=== PATIENT | female | born 1965 | race Hispanic/Latino ===

== ENCOUNTER 2021-01-26 12:32 | Emergency (ER) | payer BC, OTHER ==
[2021-01-26] MEDS ORDERED: IBUPROFEN 200 MG TAB PO ONE (13:48)
[2021-01-26] MEDS ORDERED: IBUPROFEN 400 MG TAB ONE (13:48)
[2021-01-26 16:51] LABS: Absolute Lymphocytes (CBC) 2.1 K/uL (0.7-4.9); Basophils % 1.1 % (0-1.3); Hematocrit 42.2 % (36.0-45.0); Lymphocytes % 36.4 % (15.3-44.8); MPV 8.6 fL (7.6-11.3); RBC Red Blood Cell Count 4.88 M/uL (3.86-4.86)
--- NOTE | 2021-01-26 17:00 | RAD REPORT ---
EXAM DESCRIPTION: CT - Head Brain Wo Cont - 01/26/2021 4:21 pm CLINICAL HISTORY: Vision loss COMPARISON: None. TECHNIQUE: Computed axial tomography of the head was obtained. IV contrast was not requested. All CT scans are performed using dose optimization technique as appropriate and may include automated exposure control or mA/KV adjustment according to patient size. FINDINGS: An intracranial bleed is not seen . The ventricles are normal in caliber. No extra-axial fluid collection is noted. Fluid within the sinuses/ mastoids is not seen. IMPRESSION: No acute intracranial abnormality is seen. If patient's symptoms persist MRI of the bra in would be recommended.
[2021-01-26] MEDS ORDERED: METHYLPREDNISOLONE 125 MG INJ ONE (17:03)
[2021-01-26] MEDS ORDERED: MEPERIDINE HCL 25 MG/ML SYR ONE ×2 (17:03→18:56)
[2021-01-26 17:09] LABS: Protime INR 0.96
[2021-01-26 17:10] LABS: ALT/SGPT 36 U/L (12-78); AST/SGOT 16 U/L (15-37); Alkaline Phosphatase 105 U/L (45-117); BUN Blood Urea Nitrogen 16 mg/dL (7-18); Bicarbonate 29 mmol/L (21-32); Bilirubin Direct < 0.1 mg/dL (0-0.2); Bilirubin Total 0.3 mg/dL (0.2-1.0); Glucose Level 104 mg/dL (74-106); Protein, Total 7.2 g/dL (6.4-8.2); Sodium Level 146 mmol/L (136-145)
[2021-01-26 17:36] LABS: C-Reactive Protein < 2.90 mg/L (<3.00)
--- NOTE | 2021-01-26 19:51 | RAD REPORT ---
EXAM DESCRIPTION: MRI - Brain W/Wo Cont - 01/26/2021 7:43 pm CLINICAL HISTORY: Blurred vision COMPARISON: head CT January 26, 2021 TECHNIQUE: Axial, sagittal, and coronal magnetic images of the brain were obtained. 14 cc MultiHance administered intravenously FINDINGS: No significant abnormal signal within the brain noted. The ventricles are normal in caliber. Diffusion-weighted/ ADC mapping sequences do not demonstrate evidence of an acute infarction. No abnormal enhancement within the brain is seen. An extra-axial fluid collection is not noted. Fluid within the sinuses/mastoids is not seen IMPRESSION: No acute intracranial abnormality displayed
--- NOTE | 2021-01-26 19:54 | RAD REPORT ---
EXAM DESCRIPTION: MRI - MRA Neck W/Wo Cont - 01/26/2021 7:42 pm CLINICAL HISTORY: Blurred vision COMPARISON: None. TECHNIQUE: Magnetic resonance angiogram of the neck was performed. 14 cc MultiHance was administered intravenously. 3D MIPS reconstruction performed FINDINGS: Mild plaque within common carotid, internal carotid and external carotid arteries bilatera lly. . An aneurysm is not seen. The the right vertebral artery is dominant. No abnormality noted. Left vertebral artery is hypoplastic. IMPRESSION: Mild plaque within the carotid arteries NASCET criteria used. Mild 0-49% stenosis Moderate 50-69% stenosis Severe 70-99% stenosis
--- NOTE | 2021-01-26 20:02 | EDPHYS ---
Physician Documentation [facility] Name: Doris Ventura Age: 55 yrs Sex: Female : 1965 Arrival Date: 01/26/2021 Time: 12:39 Bed 19 Private MD: ED Physician Leonel Olvia HPI: 01/26 16:05 This 55 yrs old Female presents to ER via Ambulatory with complaints of rn headache, blurred vision. 16:05 The patient complains of pain to the forehead, left eye and left buddhist. The patient rn describes the headache as aching. Onset: The symptoms/episode began/occurred 4 day(s) ago. Severity of symptoms: At its worst the pain was moderate, in the emergency department the pain is unchanged. The symptoms are alleviated by nothing. the symptoms are aggravated by nothing. The patient has not experienced similar symptoms in the past. The patient has been recently seen by a physician:. Sent by Ophthalmology, for left sided headache and blurred vision, told needs imaging and w/u for giant cell arteritis. No hx of such, only migraines. Has been happening for 4 days no, no head injury, no other neuro deficit. Reports feels like central blurred vision in left eye, doesn't effect right eye. Reports gradually worsening blurred vision, has bought 2-3 new glasses in last 4 days. . 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 - Social history:: Smoking status: Patient denies any tobacco usage or history of. - Family history:: not pertinent. - Hospitalizations: : No recent hospitalization is reported. ROS: 16:20 Constitutional: Negative for fever, chills, and weight loss, Eyes: Negative for injury, rn + blurred vision left eye Neck: Negative for injury, pain, and swelling, Cardiovascular: Negative for chest pain, palpitations, and edema, Respiratory: Negative for shortness of breath, cough, wheezing, and pleuritic chest pain, Abdomen/GI: Negative for abdominal pain, nausea, vomiting, diarrhea, and constipation, Back: Negative for injury and pain, MS/Extremity: Negative for injury and deformity, Skin: Negative for injury, rash, and discoloration, Neuro: Negative for weakness, numbness, tingling, and seizure. Exam: 16:20 Constitutional: This is a well developed, well nourished patient who is awake, alert, rn and in no acute distress. Head/Face: Normocephalic, atraumatic. Eyes: Pupils equal round and reactive to light, extra-ocular motions intact. Conjunctiva and sclera are non-icteric and not injected. Cornea within normal limits. ENT: MMM, no stridor Cardiovascular: Regular rate and rhythm. No pulse deficits. Respiratory: No increased work of breathing, no retractions or nasal flaring. Skin: Warm, dry with normal turgor. Normal color with no rashes, no lesions, and no evidence of cellulitis. MS/ Extremity: Pulses equal, no cyanosis. Neuro: Awake and alert, GCS 15, oriented to person, place, time, and situation. Cranial nerves II-XII grossly intact. Motor strength 5/5 in all extremities. Sensory grossly intact. Cerebellar exam normal. Normal gait. Vital Signs: 13:12 BP 142 / 108; Pulse 69; Resp 17; Temp 98.2; Pulse Ox 99% ; Weight 61.69 kg; Pain 6/10; jl7 17:08 BP 164 / 97; Pulse 62; Resp 18; Pulse Ox 95% on R/A; Pain 0/10; em 18:32 BP 172 / 89; Pulse 63; Resp 16; Pulse Ox 99% on R/A; em 20:03 BP 151 / 71; Pulse 64; Resp 18; Pulse Ox 98% ; wh MDM: 15:50 Patient medically screened. rn 17:35 ED course: Headache improved but vision still blurry. MRI stroke protocol ordered. rn 17:44 ED course: CRP and ESR WNL, no thrombocytosis, no lab to indicate temporal arteritis. rn MRI stroke protocol ordered to rule out ophthalmic stroke or arterial occlusion leading to blurred vision.. 17:49 ED course: Pt states her ambulatory care nurse told her today that if blood tests and MRI are rn negative, to f/u again with them for further eye testing and talk about eyesight pentecostalism. Pt has rest of week off and confident she can get back in with her eye doctor tomorrow. . 20:01 Data reviewed: vital signs, nurses notes. Counseling: I had a detailed discussion with shanat the patient and/or guardian regarding: the historical points, exam findings, and any diagnostic results supporting the discharge/admit diagnosis, lab results, radiology results, the need for outpatient follow up, to return to the emergency department if symptoms worsen or persist or if there are any questions or concerns that arise at home. 01/26 16:02 Order name: CBC with Diff rn 01/26 16:02 Order name: Basic Metabolic Panel rn 01/26 16:02 Order name: ESR rn 01/26 16:02 Order name: CRP rn 01/26 16:02 Order name: LFT's rn 01/26 16:02 Order name: Protime (+inr) rn 01/26 16:02 Order name: Ptt, Activated rn 01/26 17:02 Order name: CBC with Automated Diff; Complete Time: 17:23 EDMS 01/26 17:09 Order name: Sedimentation Rate, Westergren; Complete Time: 17:23 EDMS 01/26 17:10 Order name: Protime (+INR); Complete Time: 17:23 EDMS 01/26 17:10 Order name: PTT, Activated Partial Thromb; Complete Time: 17:23 EDMS 01/26 17:37 Order name: Basic Metabolic Panel; Complete Time: 17:43 EDMS 01/26 17:37 Order name: Liver (Hepatic) Function; Complete Time: 17:43 EDMS 01/26 17:37 Order name: C-Reactive Protein; Complete Time: 17:43 EDMS 01/26 15:33 Order name: CT Head Brain wo Cont sv 01/26 16:02 Order name: IV Start; Complete Time: 16:41 rn 01/26 17:01 Order name: CT; Complete Time: 17:23 EDMS 01/26 17:35 Order name: Stroke Protocol MRI rn 01/26 19:51 Order name: MRI; Complete Time: 19:55 EDMS 01/26 19:54 Order name: MRI; Complete Time: 19:55 EDMS 01/26 20:05 Order name: MRI; Complete Time: 20:06 EDMS Administered Medications: 16:50 Drug: SOLU-Medrol (methylPrednisoLONE) 125 mg Route: IVP; Site: right antecubital; em 17:32 Follow up: Response: No adverse reaction; Marked relief of symptoms em 16:52 Drug: Demerol (meperidine) 25 mg Route: IVP; Site: right antecubital; em 17:32 Follow up: Response: No adverse reaction; Marked relief of symptoms; Pain is decreased em 18:42 Drug: Demerol (meperidine) 12.5 mg Route: IVP; Site: right antecubital; em Disposition: 01/27 07:47 Co-signature as Attending Physician, Leonel Oliva MD. rn Disposition: 01/26/21 20:01 Discharged to Home. Impression: Left Eye Vision Loss. - Condition is Stable. - Discharge Instructions: Blurred Vision, Adult. - Medication Reconciliation Form, Thank You Letter, Antibiotic Education, Prescription Opioid Use, Work release form form. - Follow up: Private Physician; When: 1 - 2 days; Reason: Recheck today's complaints, Continuance of care, Re-evaluation by your physician. Signatures: Dispatcher [employer] EDMS Arik Bo PA PA jmm Munoz, Edgar, RN RN Leonel Oliva MD MD rn Leal, Jahala, RN RN [facility] Leia Hagan RN RN Corrections: (The following items were deleted from the chart) 01/26 16:23 16:05 Sent by Ophthalmology, for left sided headache and blurred vision, told needs internal controls analyst and w/u for giant cell arteritis. No hx of such, only migraines. Has been happening for 4 days no, no head injury, no other neuro deficit. Reports feels like central blurred vision in left eye, doesn't effect right eye.. rn 20:14 20:01 01/26/2021 20:01 Discharged to Home. Impression: Left Eye Vision Loss. Condition wh is Stable. Forms are Medication Reconciliation Form, Thank You Letter, Antibiotic Education, Prescription Opioid Use. Follow up: Private Physician; When: 1 - 2 days; Reason: Recheck today's complaints, Continuance of care, Re-evaluation by your physician. shanta
--- NOTE | 2021-01-26 20:02 | ER ---
Nurse's Notes [facility] Name: Doris Ventura Age: 55 yrs Sex: Female : 1965 Arrival Date: 01/26/2021 Time: 12:39 Bed 19 Private MD: Diagnosis: Left Eye Vision Loss Presentation: 01/26 13:12 Chief complaint: Patient states: Migraine and gradual loss of vision to left eye x 4 jl7 days, sent by lab[employer] Dr. Smith with paper requesting pt be "worked up for giant cell arteritis, if negative MRI with contrast". Coronavirus screen: Client denies travel out of the [place] in the last 14 days. At this time, the client does not indicate any symptoms associated with coronavirus-19. Ebola Screen: No symptoms or risks identified at this time. Initial Sepsis Screen: Does the patient meet any 2 criteria? No. Patient's initial sepsis screen is negative. Does the patient have a suspected source of infection? No. Patient's initial sepsis screen is negative. Risk Assessment: Do you want to hurt yourself or someone else? Patient reports no desire to harm self or others. Onset of symptoms was January 22, 2021. Care prior to arrival: None. 13:12 Method Of Arrival: Ambulatory [facility] 13:12 Acuity: UMESH 3 jl7 Triage Assessment: 13:16 General: Appears in no apparent distress. uncomfortable, Behavior is cooperative, jl7 anxious. Pain: Complains of pain in left eye and left rastafarian Pain currently is 6 out of 10 on a pain scale. Neuro: Level of Consciousness is awake, alert, obeys commands, Oriented to person, place, time, situation, Greige Goods Inspector are equal bilaterally Moves all extremities. Full function Gait is steady, Speech is normal, Facial symmetry appears normal, Reports loss of vision to left eye x 4 days. Cardiovascular: Patient's skin is warm and dry. Respiratory: Airway is patent Respiratory effort is even, unlabored, Respiratory pattern is regular, symmetrical. Derm: Skin is pink, warm \\T\\ dry. 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 - Social history:: Smoking status: Patient denies any tobacco usage or history of. - Family history:: not pertinent. - Hospitalizations: : No recent hospitalization is reported. Screenin:30 Abuse screen: Denies threats or abuse. Nutritional screening: No deficits noted. em Tuberculosis screening: No symptoms or risk factors identified. Fall Risk None identified. Assessment: 15:33 Reassessment: Received VO for CT from Dr Oliva. sv 16:45 General: Appears in no apparent distress. comfortable, Behavior is calm, cooperative, em appropriate for age, Reports vision loss in left eye and pain around left eye, also reports numbness and tingling in the left arm Denies fever. Pain: Complains of pain in forehead and face and left eye Pain currently is 8 out of 10 on a pain scale. Pain began 4 days ago. Neuro: Level of Consciousness is awake, alert, obeys commands, Oriented to person, place, time, situation. Cardiovascular: Capillary refill < 3 seconds Patient's skin is warm and dry. Respiratory: Airway is patent Respiratory effort is even, unlabored, Respiratory pattern is regular, symmetrical. GI: Patient currently denies nausea. Derm: Skin is intact, is healthy with good turgor, Skin is pink, warm \\T\\ dry. Musculoskeletal: Capillary refill < 3 seconds, Range of motion: intact in all extremities. 17:13 Reassessment: Patient appears in no apparent distress at this time. Patient and/or em family updated on plan of care and expected duration. Pain level reassessed. Patient is alert, oriented x 3, equal unlabored respirations, skin warm/dry/pink. Patient states feeling better. Patient states symptoms have improved. 18:31 Reassessment: Patient appears in no apparent distress at this time. Patient and/or em family updated on plan of care and expected duration. Pain level reassessed. Patient is alert, oriented x 3, equal unlabored respirations, skin warm/dry/pink. reports vision is unchanged, pain is better, pending MRI. 18:40 Reassessment: pt reports pain is coming back and would like to have some more pain em medication before MRI is complete, Dr. Oliva notified, received VO for Demerol 12.5 IVP x 1. Vital Signs: 13:12 BP 142 / 108; Pulse 69; Resp 17; Temp 98.2; Pulse Ox 99% ; Weight 61.69 kg; Pain 6/10; jl7 17:08 BP 164 / 97; Pulse 62; Resp 18; Pulse Ox 95% on R/A; Pain 0/10; em 18:32 BP 172 / 89; Pulse 63; Resp 16; Pulse Ox 99% on R/A; em 20:03 BP 151 / 71; Pulse 64; Resp 18; Pulse Ox 98% ; ED Course: 12:39 Patient arrived in ED. mr 13:12 Hamzah Mason, RN is Primary Nurse. jl7 13:15 Triage completed. jl7 13:16 Arm band placed on right wrist. jl7 15:45 Leonel Oliva MD is Attending Physician. rn 15:50 Segundo Espinal, PAOLA is Primary Nurse. em 16:41 Ptt, Activated Sent. mh5 16:41 Protime (+inr) Sent. mh5 16:41 LFT's Sent. mh5 16:41 CRP Sent. mh5 16:41 ESR Sent. mh5 16:41 Basic Metabolic Panel Sent. mh5 16:41 CBC with Diff Sent. mh5 16:42 Patient has correct armband on for positive identification. Placed in gown. Bed in low mh5 position. Call light in reach. Side rails up X 1. Warm blanket given. Pulse ox on. NIBP on. 16:42 Initial lab(s) drawn, by wi, sent to lab. Inserted saline lock: 22 gauge in right mh5 antecubital area, using aseptic technique. Blood collected. 18:54 Arik Bo PA is PHCP. [facility] 19:54 Primary Nurse role handed off by Segundo Espinal, PAOLA mw2 19:56 Leia Hagan, PAOLA is Primary Nurse. wh 20:13 No apparent distress. wh 20:13 No provider procedures requiring assistance completed. IV discontinued. wh Administered Medications: 16:50 Drug: SOLU-Medrol (methylPrednisoLONE) 125 mg Route: IVP; Site: right antecubital; em 17:32 Follow up: Response: No adverse reaction; Marked relief of symptoms em 16:52 Drug: Demerol (meperidine) 25 mg Route: IVP; Site: right antecubital; em 17:32 Follow up: Response: No adverse reaction; Marked relief of symptoms; Pain is decreased em 18:42 Drug: Demerol (meperidine) 12.5 mg Route: IVP; Site: right antecubital; em Outcome: 20:01 Discharge ordered by MD. womack 20:13 Discharged to home ambulatory. 20:13 Condition: good 20:13 Discharge instructions given to patient. 20:14 Patient left the ED. Signatures: Noelle Antunez, RN Arik Tripathi PA PA jmm Rivera, Mary mr Teddy, Segundo, RN Leonel Sinclair MD MD rn Martinez, Maria [facility] Hamzah Mason RN RN [facility] Leia Hagan RN RN Elda Montenegro 2
--- NOTE | 2021-01-26 20:03 | RAD REPORT ---
EXAM DESCRIPTION: MRI - MRA Head Wo Cont - 01/26/2021 7:43 pm CLINICAL HISTORY: Blurred vision COMPARISON: None. TECHNIQUE: Magnetic resonance angiogram was performed. 3D MIPS reconstruction performed FINDINGS: The basilar tip is bulbous measuring 4 millimeters. Narrowing involves the proximal aspects of the right and left A2 segments anterior cerebral artery origin right posterior cerebral artery. Middle cerebral and and posterior cerebral arteries unremarkable. Distal internal carotid arteries are unremarkable. An aneurysm is not displayed. IMPRESSION: Narrowing of the proximal aspects of the right and left A2 segment anterior cerebral art dario may be chronic Bulbous basilar tip
[2021-01-26 20:37] VITALS: TEMP 98.2
[2021-01-26 20:41] VITALS: BP 151/71; O2SAT 98
== END 2021-01-26 20:14 | disposition home or self-care (01) ==
LOC: ER 12:32
DX: H54.62 Unqualified visual loss, left eye, normal vision right eye (principal)
CPT/HCPCS: 85025; 80048; 36415; 85610; 80076; 85730; 85652; 86140; 70450; 70553; 70544; 70549; A9577; J2175 ×2; J2930; 96374; 96375; 99284

== ENCOUNTER 2024-05-09 12:29 | Emergency (ER) | payer SELFPAY ==
--- OUTSIDE RECORDS SUMMARY | 2024-05-09 12:34 | XMS REPORT | Clinical Summary ---
Author Name Unknown Organization [facility] Address [address] [place] [address] Care Team Providers Care Design Center Consultant Name Role Phone Loree Witt DO Unavailable Lisha Ahn MD Unavailable Breann Pat MD Primary Care Provider [phone] Ligia Cosme MD Unavailable [phone] Alina Lemons MD Unavailable Christine Pierson MD Unavailable [phone] Quincy Chen MD Unavailable Skinny Menchaca MD Unavailable Allergies No known active allergies Medications Medication Sig Dispensed Refills Start Date End Date Status lisinopril (PRINIVIL,ZESTRI L) 20 mg tablet TAKE 1 TABLET BY MOUTH EVERY DAY FOLLOW UP WITH PRIMARY CARE 3 Active amLODIPine (NORVASC) 5 mg tablet Take 1 tablet (5 mg) by mouth. Active DULoxetine (CYMBALTA) 20 mg capsuleIndicatio ns:Infiltrating ductal carcinoma of upper inner quadrant of right female breast,Major depressive disorder, single episode, moderate,General ized anxiety disorder Take 1 capsule (20 mg) by mouth twice daily. 60 capsule 1 3 Active Additional Information Patient taking differently:20 mg oralEvery 12 hours, Reason: Other, Reported on 06/29/2023 OLANZapine (ZyPREXA) 5 mg tabletIndication s:Infiltrating ductal carcinoma of upper inner quadrant of right female breast,Major depressive disorder, single episode, moderate,General ized anxiety disorder TAKE 1/2 TABLET (2.5 MG) BY MOUTH 2 (TWO) TIMES A DAY NEEDED FOR ANXIETY. 30 tablet 1 3 Active letrozole (FEMARA) 2.5 mg tabletIndication s:Infiltrating ductal carcinoma of upper inner quadrant of right female breast Take 1 tablet (2.5 mg) by mouth daily. 90 tablet 3 3 Active melatonin 3 mg tablet Take 5 mg by mouth at bedtime. Active mupirocin (BACTROBAN) 2% ointmentIndicati ons:Acquired absence of bilateral breasts and nipples Apply topically to affected area(s) twice daily. 22 g 4 Active alendronate (Fosamax) 70 mg tabletIndication s:Osteopenia Take 1 tablet (70 mg) by mouth every 7 days. 12 tablet 3 4 Active Additional Information Patient not taking.Reported on 11/28/2023 traMADol (Ultram) 50 mg tabletIndication s:Infiltrating ductal carcinoma of upper inner quadrant of right female breast Take 1 tablet (50 mg) by mouth every 6 (six) hours as needed for severe pain (not controlled by acetaminophen and ibuprofen). 30 tablet 3 023 Discontinued(St op Taking at Discharge) ibuprofen (ADVIL,MOTRIN) 800 mg tabletIndication s:Infiltrating ductal carcinoma of upper inner quadrant of right female breast Take 1 tablet (800 mg) by mouth every 8 (eight) hours. Take with food 15 tablet 3 023 Discontinued(St op Taking at Discharge) acetaminophen (TylenoL) 325 mg tabletIndication s:Infiltrating ductal carcinoma of upper inner quadrant of right female breast Take 2 tablets (650 mg) by mouth every 6 (six) hours. 40 tablet 3 023 Discontinued(St op Taking at Discharge) CALCIUM ORAL Take 300 mg by mouth daily. 023 Discontinued(Th erapy completed) multivitamin capsule Take 1 capsule by mouth daily. For women over 50 Discontinued( erapy completed) DULoxetine (CYMBALTA) 20 mg capsule Take 1 capsule (20 mg) by mouth. Discontinued(Du plicate order) aspirin-acetamin ophen-caffeine (EXCEDRIN MIGRAINE) 250-250-65 mg per tablet Take 2 tablets by mouth daily as needed for headaches. Last dose 06/23/23 024 Discontinued( erapy completed) acetaminophen (TYLENOL) 500 mg tabletIndication s:Personal history of breast cancer Take 1 tablet (500 mg) by mouth every 6 (six) hours. 60 tablet 3 023 Discontinued traMADol (ULTRAM) 50 mg tabletIndication s:Personal history of breast cancer Take 1 tablet (50 mg) by mouth every 6 (six) hours. 30 tablet 3 024 Discontinued( erapy completed) celecoxib (CeleBREX) 200 mg capsuleIndicatio ns:Personal history of breast cancer Take 1 capsule (200 mg) by mouth every 12 (twelve) hours. 30 capsule 3 023 Discontinued( erapy completed) methocarbamol (ROBAXIN) 500 mg tabletIndication s:Personal history of breast cancer Take 1 tablet (500 mg) by mouth every 6 (six) hours. 20 tablet 3 023 Discontinued( erapy completed) mupirocin (BACTROBAN) 2% ointmentIndicati ons:Personal history of breast cancer Apply topically to affected area(s) daily. 22 g 3 024 Discontinued( erapy completed) oxyCODONE (ROXICODONE) 5 mg immediate release tabletIndication s:Personal history of breast cancer Take 1 tablet (5 mg) by mouth every 4 (four) hours as needed for severe pain. 20 tablet 3 023 Discontinued(Re order) docusate sodium (Colace) 100 mg capsuleIndicatio ns:Personal history of breast cancer Take 1 capsule (100 mg) by mouth twice daily. 180 capsule 3 023 Discontinued polyethylene glycol (Miralax) 17 gram/dose powderIndication s:Personal history of breast cancer Fill powder to amando inside cap (17 g). Stir and Dissolve in any 4 to 8 ounces of beverage then drink solution as directed 2 times a day as needed (constipation). 238 g 3 023 Discontinued( erapy completed) silver sulfadiazine (SILVADENE, SSD) 1% creamIndications :Personal history of breast cancer Apply topically to affected area(s) daily. Apply thin layer to darkened edges of skin along incision daily. 400 g 3 024 Discontinued( erapy completed) oxyCODONE (ROXICODONE) 5 mg immediate release tabletIndication s:Personal history of breast cancer Take 1 tablet (5 mg) by mouth every 6 (six) hours as needed for severe pain. 15 tablet 3 023 Discontinued( erapy completed) traZODone (DESYREL) 100 mg tablet Take 1 tablet (100 mg) by mouth at bedtime. 4 024 Discontinued traMADol (Ultram) 50 mg tabletIndication s:Acquired absence of bilateral breasts and nipples Take 1 tablet (50 mg) by mouth every 8 (eight) hours as needed for severe pain. 30 tablet 4 024 Discontinued( erapy completed) Active Problems Patient Care Coordination No te Formatting of this note migh t be different from the original. 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 use of aromatase inhibitor 04/2023 Screening for malignant neoplasm of colon 2022 Encounter for screening for malignant neoplasm o f colon 08/18/2023 Acquired absence of bilateral breasts and nipple s 08/08/2023 Major depressive disorder, single episode, moder ate 04/07/2023 Generalized anxiety disorder 04/07/2023 Infiltrating ductal carcinom a of upper inner quadrant of right female breast 02/27/2023 Cancer Staging:Clinical stage from 02/28/2023:Stage IIA(cT2, cN1, cM0, G2, ER+, MI+, HER2-) - Signed by Karin Burdick APRN on 02/28/2023 Pathologic stage from 04/10/2023:Stage IB(pT2, pN1a, cM0, G2, ER+, MI+, HER2-, Oncotype DX score: 15) - Signed by Fadumo Bello PA on 04/21/2023 Migraine 02/13/2023 Lump in right breast 01/13/2023 Solitary pulmonary nodule 01/09/2023 Hypertension 01/09/2023 Encounters Date Type Department Care Team Description 04/18/2024 Telephone [facility] [address] [place] [address], [address] [place] [id number] Sharri Lopez MA Pre and Post Procedure Instruction 04/11/2024 [facility] [address] [place] [id number] Sharri Lopez MA Pre and Post Procedure Instruction 01/26/2024 [facility] [address] [place] [address], [address] [place], [place] [address] [address] Suzanne Cates RN 12/07/2023 Orders Only [facility] [address] [place] [address], [address] [place] [phone] Ronel Garcia PA Acquired absence of right breast and nipple (Primary Dx) 11/28/2023 2:00 PM CDT Office Visit [facility] [address] [place] [phone] Alina Lemons MD Encounter for other specified surgical aftercare (Primary Dx); Encounter for screening for malignant neoplasm of colon 11/28/2023 11:53 AM CDT - 11/28/2023 11:59 PM CDT Hospital Encounter [facility] [address] [place] [address] Skinny Menchaca MD Osteopenia Discharge Disposition: Home 11/28/2023 11:00 AM CDT Consult Internal Medicine Center - Rheumatology [address] [place] [address], 6th [place] [address] Skinny Menchaca MD Osteopenia (Primary Dx); [facility] current use of aromatase inhibitor; Infiltrating ductal carcinoma of upper inner quadrant of right female breast 11/28/2023 Documentation [facility] - Surgical Oncology [address] [facility], 5th [place] [address] MeeNoemi nieslen Jovanna 11/28/2023 Travel 11/23/2023 Hospital Encounter [facility] - Endoscopy [address] [facility] [facility], Floor [address] [place] [address] Alec Lainer MD 11/16/2023 4:26 PM DIESEL INSPECTOR Anesthesia Event Pre-Op/Surgery Check-In [address] [place] [address], 4th [place] [address] Nancy Kerr MD Brown, Jessica K, MD 11/16/2023 3:20 PM DIESEL INSPECTOR - 11/16/2023 6:05 PM DIESEL INSPECTOR Surgery Pre-Op/Surgery Check-In [address] [place] [address], 4th [place] [address] Alina Lemons MD REVISION OF RECONSTRUCTED BREAST 11/16/2023 12:55 PM DIESEL INSPECTOR - 11/16/2023 9:48 PM DIESEL INSPECTOR Hospital Encounter Pre-Op/Surgery Check-In [address] [place] [address], 4th Floor [facility] [address] Alina Lemons MD Encounter for screening for malignant neoplasm of colon (Primary Dx); Acquired absence of bilateral breasts and nipples Discharge Disposition: Home 11/16/2023 Travel 11/15/2023 11:59 PM DIESEL INSPECTOR Anesthesia Event [facility] [address] [place], [place] [id number] Freda Hyatt RN 11/15/2023 4:30 PM DIESEL INSPECTOR POEM Appointments [facility] [address] [place], [place] [id number] Ronel Garcia PA Acquired absence of bilateral breasts and nipples 11/10/2023 1:45 PM DIESEL INSPECTOR Office Visit [facility] [address] [place] [address], 5th [place] [address] Alina Lemons MD Acquired absence of bilateral breasts and nipples 11/10/2023 12:58 PM DIESEL INSPECTOR - 11/10/2023 11:59 PM DIESEL INSPECTOR Hospital Encounter [facility] [address] [place] [address] Ronel Garcia PA Acquired absence of bilateral breasts and nipples Discharge Disposition: Home 11/10/2023 Travel 10/06/2023 2:00 PM DIESEL INSPECTOR Ancillary Procedure Nuclear Medicine [address] [place] [address], 6th Floor, [place] [address] Anastasiya Moreno, FURNACE CLEANER Infiltrating ductal carcinoma of upper inner quadrant of right female breast; Estrogen receptor positive status (ER+); termination clerk current use of aromatase inhibitor; Screening for osteoporosis 10/06/2023 1:00 PM DIESEL INSPECTOR Follow-Up [facility] [address] [place] [address], 5th [place] [address] Alina Lemons MD Encounter for other specified surgical aftercare 10/06/2023 Orders Only [facility] Medical Oncology [address] [place] [address], 5th [place] [address] Shae Garcia, FURNACE CLEANER [facility] current use of aromatase inhibitor (Primary Dx); Infiltrating ductal carcinoma of upper inner quadrant of right female breast 10/06/2023 Travel 08/18/2023 Prep for Procedure Endoscopy Center [address] [facility], 5th [place] [address] Tara Dick, FURNACE CLEANER Encounter for screening for malignant neoplasm of colon (Primary Dx) 08/17/2023 12:30 PM DIESEL INSPECTOR Follow-Up Breast [facility] Medical Oncology [address] [place] [address], 5th [place] [address] Breann Pat MD Henderson, Krista P, FURNACE CLEANER Infiltrating ductal carcinoma of upper inner quadrant of right female breast (Primary Dx); Estrogen receptor positive status (ER+); termination clerk current use of aromatase inhibitor; Acquired absence of bilateral breasts and nipples; Screening for malignant neoplasm of colon; Screening for osteoporosis 08/17/2023 Travel 08/08/2023 9:00 AM DIESEL INSPECTOR Office Visit [facility] [address] [place] [phone] Alina Lemons MD Encounter for other specified surgical aftercare (Primary Dx); Personal history of breast cancer 08/08/2023 Prep for Surgery [facility] [address] [place] [address] Ronel Garcia PA Acquired absence of bilateral breasts and nipples (Primary Dx) 08/08/2023 Travel 08/01/2023 2:15 PM DIESEL INSPECTOR Clinical Support [facility] [address] [place] [address] Ronel Garcia PA Trejo, Elizabeth F, RN Acquired absence of right breast and nipple 08/01/2023 Travel 08/01/2023 [facility] Only [facility] [address] [place] [address] Ronel Garcia PA Acquired absence of right breast and nipple (Primary Dx) 07/31/2023 [facility] for Reconstructive Surgery [address] [place] [address] Alicia Jarvis MD Personal history of breast cancer 07/18/2023 11:00 AM DIESEL INSPECTOR Office Visit [facility] [address] [place] [address] Violeta Easton MD Infiltrating ductal carcinoma of upper inner quadrant of right female breast 07/18/2023 Documentation [facility] [address] [place] [address] Lucy Damon RN 07/18/2023 Travel 07/12/2023 10:30 AM CDT Office [facility] [address] [place] [address], 5th [place] [address] Alina Lemons MD Personal history of breast cancer 07/12/2023 Travel 07/10/2023 Orders Only [facility] [address] [place] [address], 5th [place] [address] Ronel Garcia PA Acquired absence of right breast and nipple (Primary Dx) 07/04/2023 Telephone [facility] [address] [place], [place] [phone] Maury Finley APRN Discharge Call 06/28/2023 8:00 AM CDT - 06/28/2023 6:40 PM CDT Surgery MAIN OR [address] [place] [phone] Violeta Easton MD SKIN SPARING TOTAL MASTECTOMY 06/28/2023 7:45 AM CDT Anesthesia Event MAIN OR [address] [place] [address] Carlos Henao MD 06/28/2023 6:08 AM CDT - 07/01/2023 4:00 PM CDT Hospital Encounter P4 Transition PACU [address] [place], [place] [phone] Violeta Easton MD Christensen, Joani Marie, MD Personal history of breast cancer (Primary Dx); Infiltrating ductal carcinoma of upper inner quadrant of right female breast Discharge Disposition: Home 06/28/2023 Travel 06/27/2023 11:30 AM CDT Office Visit [facility] [address] [place] [address], [facility] [place] [address] Violeta Easton MD Infiltrating ductal carcinoma of upper inner quadrant of right female breast 06/27/2023 9:40 AM CDT Telemedicine [facility] - Medical Oncology [address] [place] [address], 5th [place] [address] Breann Pat MD Infiltrating ductal carcinoma of upper inner quadrant of right female breast 06/27/2023 8:30 AM CDT Ancillary Procedure X-Ray Outpatient Center [facility], 7th [place] [address] Trina Dolan PA Infiltrating ductal carcinoma of upper inner quadrant of right female breast 06/27/2023 7:45 AM CDT - 06/27/2023 11:59 PM CDT Hospital Encounter [facility] [address] [place] [address], 2nd [place] [address] Trina Dolan PA Infiltrating ductal carcinoma of upper inner quadrant of right female breast Discharge Disposition: Home 06/27/2023 7:30 AM CDT - 06/27/2023 7:44 AM CDT Hospital Encounter [facility] [address] [place] [address], [place] [address] Trina Dolan PA Infiltrating ductal carcinoma of upper inner quadrant of right female breast Discharge Disposition: Home 06/27/2023 Travel 06/26/2023 8:30 AM CDT POEM Appointments [facility] [address] [place] [address], 6th [place] [address] Breann Pat MD 06/26/2023 Telephone Breast [facility] [address] [place] [address], 5th [place] [address] Freda Cheng RN 06/23/2023 2:15 PM CDT Office Visit [facility] [address] [place] [address], 5th [place] [address] Alina Lemons MD Acquired absence of right breast and nipple 06/23/2023 Documentation Breast [facility] [address] [place] [address], 5th [place] [address] Noemi Rodriguez 06/23/2023 Travel 06/20/2023 9:40 AM CDT Telemedicine Breast [facility] [address] [place] [address], 5th [place] [address] Breann Pat MD Infiltrating ductal carcinoma of upper inner quadrant of right female breast (Primary Dx) 06/20/2023 1:02 AM CDT Anesthesia Event Perioperative Evaluation [facility] Management Center [address] [facility], 6th [place] [address] Neelam Rosado RN 06/20/2023 Orders Only Breast [facility] [address] [place] [address], 5th [place] [address] Anastasiya Moreno APRN Infiltrating ductal carcinoma of upper inner quadrant of right female breast (Primary Dx) 06/20/2023 Orders Only Breast [facility] [address] [place] [address], 5th [place] [address] Breann Pat MD Infiltrating ductal carcinoma of upper inner quadrant of right female breast (Primary Dx) 06/19/2023 Orders Only [facility] [address] [place] [address], 5th [place] [address] Ronel Garcia PA Acquired absence of right breast and nipple (Primary Dx) 06/05/2023 Orders Only Breast [facility] [address] [place] [address], 5th [place] [address] Trina Dolan PA Infiltrating ductal carcinoma of upper inner quadrant of right female breast (Primary Dx) 06/05/2023 Prep for Surgery Breast [facility] [address] [place] [address], 5th [place] [address] Trina Dolan PA Infiltrating ductal carcinoma of upper inner quadrant of right female breast (Primary Dx) 05/31/2023 Documentation [facility] [address] [place] [address], 5th [place] [address] Noemi Rodriguez 05/25/2023 9:40 AM CDT Follow-Up [facility] - Medical Oncology [address] [facility], 5th [place] [address] Breann Pat MD Infiltrating ductal carcinoma of upper inner quadrant of right female breast 05/25/2023 Travel after 05/10/2023 Immunizations Name Administration Dates Next Due Pfizer SARS-CoV-2 Vaccination 12+ y.o. 2,08/30/2021 Surgical History Surgery Date Site/Laterality Comments APPENDECTOMY When I was 18 PARTIAL HYSTERECTOMY 2012 fibroids- anema ovaries intact BREAST CYST ASPIRATION 09/11/2012 - 09/10/2013 Right SECTION, CLASSIC 09/11/1988 - 09/10/1989 MI INSJ TUNNELED CTR VAD W/SUBQ PORT AGE 5 YR/> 03/06/2023 Neck/Left Procedure: PORT-A-CATH PLACEMENT; Surgeon: Boris Goldsmith MD; Location: [facility]; Service: SURG ONC - PORT Medical devices from this surgery are in the Medical Devices section. MI FLUORO CENTRAL VENOUS ACCESS DEV PLACEMENT 03/06/2023 Neck/N/A Procedure: FLUORO GUIDANCE FOR CENTRAL VENOUS ACCESS DEVICE PLACEMENT, REPLACEMENT, OR REMOVAL; Surgeon: Boris Goldsmith MD; Location: [facility]; Service: SURG ONC - PORT Medical devices from this surgery are in the Medical Devices section. MI US VASC ACCESS SITS VSL PATENCY NDL ENTRY 03/06/2023 N/A Procedure: US GUIDANCE WITH EVAL OF POTENTIAL ACCESS SITES, REALTIME US VISUALIZATION OF VASC NEEDLE ENTRY; Surgeon: Boris Goldsmith MD; Location: [facility]; Service: SURG ONC - PORT Medical devices from this surgery are in the Medical Devices section. MI MASTECTOMY SIMPLE COMPLETE 04/10/2023 Right Procedure: SKIN SPARING TOTAL MASTECTOMY; Surgeon: Violeta Easton MD; Location: MAIN OR; Service: BREAST Medical devices from this surgery are in the Medical Devices section. MI BX/EXC LYMPH NODE OPEN DEEP AXILLARY NODE 04/10/2023 Right Procedure: EXCISION OF CLIPPED AXILLARY LYMPH NODE; Surgeon: Violeta Easton MD; Location: MAIN OR; Service: BREAST Medical devices from this surgery are in the Medical Devices section. MI AXILLARY LYMPHADENECTOMY COMPLETE 04/10/2023 Axilla/Right Procedure: AXILLARY LYMPHADENECTOMY WITH AXILLARY REVERSE MAPPING; Surgeon: Violeta Easton MD; Location: MAIN OR; Service: BREAST Medical devices from this surgery are in the Medical Devices section. MI TISSUE DRIVER UTILITY WORKER PLACEMENT BREAST RECONSTRUCTION 04/10/2023 Right Procedure: RECONSTRUCTION OF BREAST WITH TISSUE DRIVER UTILITY WORKER; Surgeon: Alina Lemons MD; Location: MAIN OR; Service: PLS - PLASTIC SURGERY Medical devices from this surgery are in the Medical Devices section. MI REPAIR BLOOD VESSEL DIRECT UPPER EXTREMITY 04/10/2023 Right Procedure: SUTURE OR PATCH CLOSURE OF BLOOD VESSEL OF UPPER EXTREMITY; Surgeon: Alina Lemons MD; Location: MAIN OR; Service: PLS - PLASTIC SURGERY Medical devices from this surgery are in the Medical Devices section. MI IMPLNT BIO IMPLNT FOR SOFT TISSUE REINFORCEMENT 04/10/2023 Breast/Right Procedure: IMPLANTATION OF BIOLOGIC IMPLANT (EG, ACELLULAR DERMAL MATRIX) FOR SOFT TISSUE REINFORCEMENT; Surgeon: Alina Lemons MD; Location: MAIN OR; Service: PLS - PLASTIC SURGERY Medical devices from this surgery are in the Medical Devices section. MI MASTECTOMY SIMPLE COMPLETE 06/28/2023 Breast/Left Procedure: SKIN SPARING TOTAL MASTECTOMY; Surgeon: Violeta Easton MD; Location: MAIN OR; Service: BREAST Medical devices from this surgery are in the Medical Devices section. MI RMVL CARRILLO CTR VAD W/SUBQ PORT/MAGISTRATE CTR/PRPH INSJ 06/28/2023 Chest/Left Procedure: PORT-A-CATH REMOVAL; Surgeon: Violeta Easton MD; Location: MAIN OR; Service: BREAST Medical devices from this surgery are in the Medical Devices section. MI BREAST RECONSTRUCTION W/FREE FLAP 06/28/2023 Breast/Bilateral Procedure: RECONSTRUCTION OF BREAST WITH FREE FLAP; Surgeon: Alina Lemons MD; Location: MAIN OR; Service: PLS - PLASTIC SURGERY Medical devices from this surgery are in the Medical Devices section. MI IV INJECTION TEST VASCULAR FLOW FLAP/GRAFT 06/28/2023 Abdomen/N/A Procedure: INTRAVENOUS INJECTION OF AGENT (EG, FLUORESCEIN) TO TEST VASCULAR FLOW IN FLAP OR GRAFT (SPY); Surgeon: Alina Lemons MD; Location: MAIN OR; Service: PLS - PLASTIC SURGERY Medical devices from this surgery are in the Medical Devices section. MI REMOVAL TISSUE DRIVER UTILITY WORKER W/O INSERTION IMPLANT 06/28/2023 Breast/Right Procedure: REMOVAL OF TISSUE DRIVER UTILITY WORKER; Surgeon: Alina Lemons MD; Location: MAIN OR; Service: PLS - PLASTIC SURGERY Medical devices from this surgery are in the Medical Devices section. MI SAMEER-IMPLANT CAPSULECTOMY BREAST COMPLETE 06/28/2023 Breast/Right Procedure: PERIPROSTHETIC CAPSULECTOMY OF BREAST; Surgeon: Alina Lemons MD; Location: MAIN OR; Service: PLS - PLASTIC SURGERY Medical devices from this surgery are in the Medical Devices section. MI REVISION OF RECONSTRUCTED BREAST 11/16/2023 Breast/Bilateral Procedure: REVISION OF RECONSTRUCTED BREAST; Surgeon: Alina Lemons MD; Location: [facility]; Service: PLS - PLASTIC SURGERY MI MASTOPEXY 11/16/2023 Breast/Left Procedure: MASTOPEXY; Surgeon: Alina Lemons MD; Location: [facility]; Service: PLS - PLASTIC SURGERY MI GRAFTING OF AUTOLOGOUS FAT BY LIPO 50 CC OR LESS 11/16/2023 Breast/Bilateral Procedure: GRAFTING OF AUTOLOGOUS FAT HARVESTED BY LIPOSUCTION TECHNIQUE TO BREASTS; Surgeon: Alina Lemons MD; Location: [facility]; Service: PLS - PLASTIC SURGERY MI REPAIR COMPLEX TRUNK 1.1-2.5 CM 11/16/2023 Abdomen/Bilateral Procedure: COMPLEX REPAIR OF TRUNK; Surgeon: Alina Lemons MD; Location: [facility]; Service: PLS - PLASTIC SURGERY Medical History Medical History Date Comments Hypertension November 2021 Hyperlipidemia November 2021 Migraine Since puberty Functional visual loss In 2021 left eye after infection Unspecified lump in unspecified breast 2020 Lung nodule 2022 Irritable bowel syndrome 2020 Menopause 2019 Depressive disorder 2018 Anxiety 2019 Fibrocystic disease of breast Breast cancer 02/2023 right breast Family History Medical History Relation Name Comments Lung cancer Maternal Grandfather Jake Aldridge My gran dpa of lung cancer Relation Name Status Comments Maternal Grandfather Jake Aldridge Social History Tobacco Use Types Packs/Day Years Used Date Smoking Tobacco: Never Passive Smoke Exposure: Past Smokeless Tobacco: Never Tobacco Cessation:Counseling Given: Not Answered Comments:I lived in the past with a partner for 5 years who will smoke two packs or a lil less a day Alcohol Use Standard Drinks/Week Comments Not Currently 5 (1 standard drink = 0.6 oz pur e alcohol) socially Sex and Gender Information Value Date Recorded Sex Assigned at Female 12/24/2022 12:29 PM CDT Gender Identity Female 12/24/2022 12:29 PM CDT Sexual Orientation Straight 12/24/2022 12 :29 PM CDT Job Start Date Occupation Industry Not on file Not on file Not on file Obstetrics History Para Term AB IAB SAB Ectopic Multiple Livin g Live Births 3 3 2 2 2 Date Outcome GA Total Labor Labor/2nd/3rd Weight Sex Type Anes PTL Nahomi A1 A5 Name Clin 1994 Term M Vag-S pont Living 1998 Para M CS-LT ranv Living 2000 Term M Vag-S pont Comments Menarche 15 Parity 21 OBC 24 years Hormonal Therapy none Last Pap remote Abnormal Pap none Last Luna 2016 (OS) Last Colon none Breastfeed 3 months Bra Size 34 C Last Filed Vital Signs Vital Sign Reading Time Taken Comments Blood Pressure 133/82 11/28/2023 10:51 AM CDT Pulse 68 11/28/2023 10:51 AM CDT Temperature 36 C (96.8 F) 11/28/2023 10:51 AM CDT Respiratory Rate 16 11/28/2023 10:51 AM CDT Oxygen Saturation 98% 11/28/2023 10:51 AM CDT Inhaled Oxygen Concentration - - Weight 52.8 kg (116 lb 6.5 oz) 11/28/2023 10:51 AM CDT Height 153 cm (5' 0.24") 11/28/2023 10:51 AM CDT Body Mass Index 22.56 11/28/2023 10:51 AM CDT Plan of Treatment Health Maintenance Due Date Last Done Comments COVID-19 Vaccine (2022-2 4 season) 2023 02/09/2022, 08/30/2021, 08/02/2021 Influenza Vaccine 05/12/2024 Pneumococcal Vaccine: Pediatrics (0 to 5 Years) and At-Risk Patients (6 to 64 Years) Aged Out No longer eligible b ased on patient's age to complete this topic Medical Devices Implanted Type Area Confectionery Maker Device Identifier Shelf Expiration Date Model / Serial / Lot Electrical Installation Inspector Microvascular Anastomotic Device 2.5mm - [id number] Implanted:Qty: 1 on 06/28/2023 by Alina Lemons MD at [facility] CardioPulm Left: Chest [employer] [id number] 01/19/2028 [id number] / / [id number] Electrical Installation Inspector Microvascular Anastomotic Device 3.0mm - [id number] Implanted:Qty: 1 on 06/28/2023 by Alina Lemons MD at [facility] CardioPulm Right: Breast [employer] [id number] 06/13/2027 [id number] / / [id number] Matrix Tiss [id number] Aldrm Slct - Sn/A Implanted:Qty: 1 on 04/10/2023 by Alina Lemons MD at [facility] Implant Right: Breast [employer] 12/09/2024 [id number] / N/A / [id number] Explanted Type Area Confectionery Maker Device Identifier Shelf Expiration Date Model / Serial / Lot Xpd Tiss [id number] 500cc Sty 133 Sty 133s Smth Sut Tab Natrelle - [id number] Implanted:Qty : 1 on 04/10/2023 by Alina Lemons MD at [facility] Explanted:Qty : 1 on 06/28/2023 by Jailyn Lepe MD Breast Right: Breast [employer] 05/28/2027 [id number] -[id number] / [id number] / [place], Clearvue Slim 6fr - [id number] Implanted:Qty : 1 on 03/06/2023 by Boris Goldsmith MD at [facility] Explanted:Qty : 1 on 06/28/2023 by Violeta Easton MD Implant Left: Internal Jugular BARD PERIPHERAL VASCULAR 08/10/2024 [id number] / / [id number] Description:24cm Procedures Procedure Name Priority Date/Time Associated Diagnosis Comments VITAMIN D 25 HYDROXY LEVEL Routine 11/28/2023 12:03 PM CDT Osteopenia PATHOLOGY SURGICAL INTERPRETATION Routine 11/16/2023 5:38 PM DIESEL INSPECTOR Acquired absence of bilateral breasts and nipples MI REPAIR COMPLEX TRUNK 1.1-2.5 CM 11/16/2023 4:11 PM DIESEL INSPECTOR Acquired absence of bilateral breasts and nipples Special Needs [id number] MI GRAFTING OF AUTOLOGOUS FAT BY LIPO 50 CC OR LESS 11/16/2023 4:11 PM DIESEL INSPECTOR Acquired absence of bilateral breasts and nipples Special Needs [id number] ng MI MASTOPEXY 11/16/2023 4:11 PM DIESEL INSPECTOR Acquired absence of bilateral breasts and nipples Special Needs [id number] gn MI REVISION OF RECONSTRUCTED BREAST 11/16/2023 4:11 PM DIESEL INSPECTOR Acquired absence of bilateral breasts and nipples Special Needs [id number] ng HISTORICAL ABORH Routine 11/10/2023 2:00 PM DIESEL INSPECTOR Acquired absence of bilateral breasts and nipples .CBC Routine 11/10/2023 1:04 PM DIESEL INSPECTOR Acquired absence of bilateral breasts and nipples TYPE AND SCREEN Routine 11/10/2023 1:04 PM DIESEL INSPECTOR Acquired absence of bilateral breasts and nipples FREE THYROXINE Routine 11/10/2023 1:04 PM DIESEL INSPECTOR Acquired absence of bilateral breasts and nipples THYROID STIMULATING HORMONE Routine 11/10/2023 1:04 PM DIESEL INSPECTOR Acquired absence of bilateral breasts and nipples HEMOGLOBIN A1C Routine 11/10/2023 1:04 PM DIESEL INSPECTOR Acquired absence of bilateral breasts and nipples GLUCOSE, RANDOM Routine 11/10/2023 1:04 PM DIESEL INSPECTOR Acquired absence of bilateral breasts and nipples CREATININE Routine 11/10/2023 1:04 PM DIESEL INSPECTOR Acquired absence of bilateral breasts and nipples BLOOD UREA NITROGEN Routine 11/10/2023 1 :04 PM DIESEL INSPECTOR Acquired absence of bilateral breasts and nipples ELECTROLYTE PANEL Routine 11/10/2023 1:0 4 PM DIESEL INSPECTOR Acquired absence of bilateral breasts and nipples COMPLETE BLOOD COUNT W/ DIFFERENTIAL Routine 11/10/2023 1:04 PM DIESEL INSPECTOR Acquired absence of bilateral breasts and nipples DEXA BONE MINERAL DENSITY BOTH HIPS AND SPINE Routine 10/06/2023 2:17 PM DIESEL INSPECTOR Infiltrating ductal carcinoma of upper inner quadrant of right female breast Estrogen receptor positive status (ER+) MCFP current use of aromatase inhibitor Screening for osteoporosis .CBC Routine 07/01/2023 3:45 AM CDT COMPLETE BLOOD COUNT W/ DIFFERENTIAL Routine 07/01/2023 3:45 AM CDT CALCIUM IONIZED, VENOUS AM 06/30/2023 4:00 AM CDT .GLOMERULAR FILTRATION RATE AM 06/30/2023 4:00 AM CDT SERUM CREATININE AM 06/30/2023 4:00 AM CDT ELECTROLYTE PANEL AM 06/30/2023 4:0 0 AM CDT BLOOD UREA NITROGEN AM 06/30/2023 4 :00 AM CDT GLUCOSE LEVEL AM 06/30/2023 4:00 AM CDT DIFFERENTIAL AM 06/30/2023 4:00 AM CDT .CBC AM 06/30/2023 4:00 AM CDT BASIC METABOLIC PANEL, CALCIUM IONIZED AM 06/30/2023 4:00 AM CDT COMPLETE BLOOD COUNT W/ DIFFERENTIAL AM 06/30/2023 4:00 AM CDT LACTIC ACID, VENOUS Routine 06/30/2023 4 :00 AM CDT LACTIC ACID, VENOUS STAT 06/29/2023 10:40 AM CDT CALCIUM IONIZED, VENOUS Routine 06/29/2023 9:47 AM CDT FRACTIONATED BILIRUBIN Routine 9:47 AM CDT TOTAL PROTEIN Routine 06/29/2023 9:47 AM CDT ASPARTATE AMINOTRANSFERASE Routine 06/29/2023 9:47 AM CDT ALANINE AMINOTRANSFERASE Routine 06/29/2023 9:47 AM CDT ALKALINE PHOSPHATASE Routine 06/29/2023 9:47 AM CDT ALBUMIN LEVEL Routine 06/29/2023 9:47 AM CDT CALCIUM LEVEL Routine 06/29/2023 9:47 AM CDT .GLOMERULAR FILTRATION RATE Routine 06/29/2023 9:47 AM CDT SERUM CREATININE Routine 06/29/2023 9:47 AM CDT ELECTROLYTE PANEL Routine 06/29/2023 9:4 7 AM CDT BLOOD UREA NITROGEN Routine 06/29/2023 9 :47 AM CDT GLUCOSE LEVEL Routine 06/29/2023 9:47 AM CDT PHOSPHORUS LEVEL Routine 06/29/2023 9:47 AM CDT MAGNESIUM LEVEL Routine 06/29/2023 9:47 AM CDT COMPREHENSIVE METABOLIC PANEL Routine 06/29/2023 9:47 AM CDT BASIC METABOLIC PANEL, CALCIUM IONIZED Routine 06/29/2023 9:47 AM CDT DIFFERENTIAL AM 06/29/2023 2:17 AM CDT .CBC AM 06/29/2023 2:17 AM CDT COMPLETE BLOOD COUNT W/ DIFFERENTIAL AM 06/29/2023 2:17 AM CDT POC GLUCOSE SCREEN Routine 06/28/2023 8: 34 PM CDT OR ARTERIAL BLOOD GAS PLUS STAT 06/28/2023 6:15 PM CDT OR ARTERIAL BLOOD GAS PLUS STAT 06/28/2023 4:50 PM CDT OR ARTERIAL BLOOD GAS PLUS STAT 06/28/2023 3:13 PM CDT OR ARTERIAL BLOOD GAS PLUS STAT 06/28/2023 2:07 PM CDT PATHOLOGY SURGICAL INTERPRETATION Routine 06/28/2023 10:31 AM CDT Infiltrating ductal carcinoma of upper inner quadrant of right female breast Personal history of breast cancer OR ARTERIAL BLOOD GAS PLUS STAT 06/28/2023 9:38 AM CDT MI SAMEER-IMPLANT CAPSULECTOMY BREAST COMPLETE 06/28/2023 7:20 AM CDT Personal history of breast cancer Special Needs 0600@LRUtilize breast block please. Requesting Main OR. 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 Requesting Main OR. MI IV INJECTION TEST VASCULAR FLOW FLAP/GRAFT 06/28/2023 7:20 AM CDT Personal history of breast cancer Special Needs 0600@LRUtilize breast block please. Requesting Main OR. MI BREAST RECONSTRUCTION W/FREE FLAP 06/28/2023 7:20 AM CDT Personal history of breast cancer Special Needs 0600@LRUtilize breast block please. Requesting Main OR. MI RMVL CARRILLO CTR VAD W/SUBQ PORT/MAGISTRATE CTR/PRPH INSJ 06/28/2023 7:20 AM CDT Personal history of breast cancer Special Needs 0600@LRUtilize breast block please. Requesting Main OR. MI MASTECTOMY SIMPLE COMPLETE 06/28/2023 7:20 AM CDT Personal history of breast cancer Special Needs 0600@LRUtilize breast block please. Requesting Main OR. XR CHEST 2 VW Routine 06/27/2023 8:44 AM CDT Infiltrating ductal carcinoma of upper inner quadrant of right female breast TMP INTERPRETATION ANTIBODY SCREEN NEGATIVE Routine 06/27/2023 8:07 AM CDT CLOT EXPIRATION DATE Routine 06/27/2023 8:07 AM CDT ANTIBODY SCREEN Routine 06/27/2023 8:07 AM CDT Infiltrating ductal carcinoma of upper inner quadrant of right female breast ABORH Routine 06/27/2023 8:07 AM CDT Infiltrating ductal carcinoma of upper inner quadrant of right female breast FRACTIONATED BILIRUBIN Routine 8:07 AM CDT Infiltrating ductal carcinoma of upper inner quadrant of right female breast TOTAL PROTEIN Routine 06/27/2023 8:07 AM CDT Infiltrating ductal carcinoma of upper inner quadrant of right female breast ASPARTATE AMINOTRANSFERASE Routine 06/27/2023 8:07 AM CDT Infiltrating ductal carcinoma of upper inner quadrant of right female breast ALANINE AMINOTRANSFERASE Routine 06/27/2023 8:07 AM CDT Infiltrating ductal carcinoma of upper inner quadrant of right female breast ALKALINE PHOSPHATASE Routine 06/27/2023 8:07 AM CDT Infiltrating ductal carcinoma of upper inner quadrant of right female breast ALBUMIN LEVEL Routine 06/27/2023 8:07 AM CDT Infiltrating ductal carcinoma of upper inner quadrant of right female breast CALCIUM LEVEL Routine 06/27/2023 8:07 AM CDT Infiltrating ductal carcinoma of upper inner quadrant of right female breast .GLOMERULAR FILTRATION RATE Routine 06/27/2023 8:07 AM CDT Infiltrating ductal carcinoma of upper inner quadrant of right female breast SERUM CREATININE Routine 06/27/2023 8:07 AM CDT Infiltrating ductal carcinoma of upper inner quadrant of right female breast ELECTROLYTE PANEL Routine 06/27/2023 8:0 7 AM CDT Infiltrating ductal carcinoma of upper inner quadrant of right female breast BLOOD UREA NITROGEN Routine 06/27/2023 8 :07 AM CDT Infiltrating ductal carcinoma of upper inner quadrant of right female breast GLUCOSE LEVEL Routine 06/27/2023 8:07 AM CDT Infiltrating ductal carcinoma of upper inner quadrant of right female breast DIFFERENTIAL Routine 06/27/2023 8:07 AM CDT Infiltrating ductal carcinoma of upper inner quadrant of right female breast .CBC Routine 06/27/2023 8:07 AM CDT Infiltrating ductal carcinoma of upper inner quadrant of right female breast TYPE AND SCREEN Routine 06/27/2023 8:07 AM CDT Infiltrating ductal carcinoma of upper inner quadrant of right female breast APTT Routine 06/27/2023 8:07 AM CDT Infiltrating ductal carcinoma of upper inner quadrant of right female breast PROTHROMBIN TIME Routine 06/27/2023 8:07 AM CDT Infiltrating ductal carcinoma of upper inner quadrant of right female breast HEMOGLOBIN A1C Routine 06/27/2023 8:07 AM CDT Infiltrating ductal carcinoma of upper inner quadrant of right female breast COMPREHENSIVE METABOLIC PANEL Routine 06/27/2023 8:07 AM CDT Infiltrating ductal carcinoma of upper inner quadrant of right female breast COMPLETE BLOOD COUNT W/ DIFFERENTIAL Routine 06/27/2023 8:07 AM CDT Infiltrating ductal carcinoma of upper inner quadrant of right female breast CONFIRM ABORH TYPE Routine 06/27/2023 8: 04 AM CDT EKG, 12-LEAD (SCHEDULED) Routine 06/27/2023 Infiltrating ductal carcinoma of upper inner quadrant of right female breast after 05/10/2023 Results * (ABNORMAL) Vitamin D 25OH (11/28/2023 12:03 PM CDT) Pathologist [facility] Vitamin D 25 OH 23(L) 30 - 100 ng/mL 11/28/2023 12:58 PM CDT [facility] Blood Peripheral blood specimen / Unknown Venipuncture / Unknown 11/28/2023 12:03 PM CDT 11/28/2023 12:05 PM CDT Narrative [facility] - 11/28/2023 12:58 PM CDT Reference Range: Deficiency: <=20 ng/mL Insufficiency: 21-29 ng/mL Sufficiency: 30-100 ng/mL Potential toxicity: >100 ng/mL Skinny Menchaca MD LAB BLOOD ORDERABLES [facility] Unless otherwise noted, all lab tests performed by: Division of Pathology and Laboratory Medicine [address] [place] [id number] * Pathology Surgical Interpretation (11/16/2023 5:38 PM DIESEL INSPECTOR) Only the most recent of2 resultswithin the time period is included. Submitted Clinical History Acquired absence of bilateral breasts and nipples [Z90.13] 11/21/2023 8:42 AM CDT [facility] Diagnosis A. Skin, right breast, excision: Skin and subcutaneous tissue with prior procedure-related changes. B. Skin, left breast, excision: Skin and subcutaneous tissue with prior procedure-related changes. LK/LG 11/21/2023 8:42 AM CDT [facility] Gross Description A: Breast, right, skin, right breast skin, for permanent ( acb or 5 ): A 6.5 x 1.7 x 0.4 cm aggregate of acosta, unoriented, grossly unremarkable skin. No masses or lesions are identified grossly. Fan Blade Truer sections are submitted in cassette A1. JLA Cold Ischemia and Fixation Times Do not meet requirements specified in latest version of the ASCO/CAP guidelines. Cold ischemia time: 1h 42m Fixative: 10% Neutral Buffered Formalin In fixative: 11/16/2023 7:20 PM Fixation time: > 6 hours and < 72 hours B: Breast, left, skin, left breast skin, for permanent ( acb or 5 ): A 6.5 x 4.8 x 2.7 cm aggregate of acosta, grossly unremarkable, unoriented skin. No masses or lesions are identified grossly. Fan Blade Truer sections are submitted in cassette B1. JLA Cold Ischemia and Fixation Times Do not meet requirements specified in latest version of the ASCO/CAP guidelines. Cold ischemia time: 1h 41m Fixative: 10% Neutral Buffered Formalin In fixative: 11/16/2023 7:20 PM Fixation time: > 6 hours and < 72 hours 11/21/2023 8:42 AM CDT [facility] Disclaimer "Some tests reported here may have been developed and performance characteristics determined by [facility] Pathology and Laboratory Medicine. These tests have not been specifically cleared or approved by the U.S. Food and Drug Administration. If applicable, controls were reviewed and showed appropriate reactivity." 11/21/2023 8:42 AM T [facility] Tissue (Breast, Right, Skin) 11/16/2023 5:38 PM DIESEL INSPECTOR 11/17/2023 8:40 AM DIESEL INSPECTOR Tissue specimen (specimen) (Breast, Left, Skin) 11/16/2023 5:39 PM DIESEL INSPECTOR 11/17/2023 8:40 AM DIESEL INSPECTOR Alina Lemons MD LAB PATHOLOGY ORDERABLES [facility] [place] [address], * Historical ABORh (11/10/2023 2:00 PM DIESEL INSPECTOR) ABORh B POS 11/10/2023 2:01 PM DIESEL INSPECTOR [facility] Blood Peripheral blood specimen / Unknown 11/10/2023 2:00 PM DIESEL INSPECTOR 11/10/2023 2:00 PM DIESEL INSPECTOR Ronel FERREIRA BLOOD BANK TEST KRISTYN ARNOLD [facility] [address] [place] [address] [id number] [place] [address] * Glucose, Random (11/10/2023 1:04 PM DIESEL INSPECTOR) Pathologist [facility] Glucose Random 96 70 - 199 mg/dL 11/10/2023 1:34 PM [facility] Blood Peripheral blood specimen / Unknown Venipuncture / Unknown 11/10/2023 1:04 PM DIESEL INSPECTOR 11/10/2023 1:05 PM DIESEL INSPECTOR Narrative [facility] - 11/10/2023 1:34 PM DIESEL INSPECTOR Effective 04/06/16, the glucose reference intervals have been updated based on [place] Diabetes [employer] guidelines (Standards of Medical Care in Diabetes 2016. Diabetes Care 2016; 39: S13-S22). Fasting blood glucose: Normal: 70-99 mg/dL Impaired fasting glucose (increased risk for diabetes or pre-diabetes): 100-125 mg/dL Diabetes mellitus: >/=126 mg/dL Random blood glucose: Normal: 70-199 mg/dL Note: Random glucose >100 mg/dL is associated with increased risk for diabetes Ronel FERREIRA LAB BLOOD ORDERABLES [facility] [address] [place] [address] * (ABNORMAL) .CBC (11/10/2023 1:04 PM [facility]) Only the most recent of5 resultswithin the time period is included. White Blood Cell 5.6 4.1 - 10.5 K/uL 11/10/2023 1:09 PM [facility] Red Blood Cell 4.94 3.99 - 5.46 M/uL 11/10/2023 1:09 PM [facility] Hemoglobin 13.9 12.2 - 15.3 g/dL 11/10/2023 1:09 PM [facility] Hematocrit 40.9 36.4 - 46.8 % 11/10/2023 1:09 PM [facility] Mean Cell Volume 83 82 - 99 fL 11/10/2023 1:09 PM [facility] Mean Cell Hemoglobin 28.1 26.6 - 33.2 pg 11/10/2023 1:09 PM [facility] Mean Cell Hemoglobin Concentration 34.0 31.1 - 35.2 g/dL 11/10/2023 1:09 PM [facility] RDW-SD 51.5(H) 37.5 - 49.7 fL 11/10/2023 1:09 PM [facility] Red Cell Diameter Width 16.9(H) 11.6 - 15.5 % 11/10/2023 1:09 PM [facility] Platelet 339 160 - 397 K/uL 11/10/2023 1:09 PM [facility] Mean Platelet Volume 9.4 9.1 - 12.6 fL 11/10/2023 1:09 PM [facility] INRBC 0.0 0.0 - 0.1 /100 WBC 11/10/2023 1:09 PM [facility] Comment: The INRBC (instrument NRBC) value reflects the enumeration of nucleated red blood cells contained in a 200uL sample of whole blood analyzed by the instrument. This value may differ from the NRBC value reported in a manual differential, which is based on a 100 cell differential. Neutrophil % 56.0 43.2 - 72.7 % 11/10/2023 1:09 PM [facility] Lymphocyte % 35.4 16.8 - 46.2 % 11/10/2023 1:09 PM [facility] Monocyte % 6.8 5.1 - 12.5 % 11/10/2023 1:09 PM [facility] Eosinophil % 1.1 0.4 - 6.3 % 11/10/2023 1:09 PM [facility] Basophil % 0.5 0.2 - 1.4 % 11/10/2023 1:09 PM [facility] IGRE % 0.2 0.1 - 1.5 % 11/10/2023 1:09 PM [facility] Comment:The IGRE% includes M etamyelocytes, Myelocytes and Promyelocytes. Neutrophil Abs 3.15 1.95 - 7.25 K/uL 11/10/2023 1:09 PM [facility] Lymphocyte Abs 1.99 1.01 - 3.24 K/uL 11/10/2023 1:09 PM [facility] Monocyte Abs 0.38 0.24 - 0.85 K/uL 11/10/2023 1:09 PM [facility] Eosinophil Abs 0.06 0.02 - 0.50 K/uL 11/10/2023 1:09 PM [facility] Basophil Abs 0.03 0.02 - 0.09 K/uL 11/10/2023 1:09 PM [facility] IG Abs 0.01 0.01 - 0.12 K/uL 11/10/2023 1:09 PM DIESEL INSPECTOR [facility] Blood Peripheral blood specimen / Unknown Venipuncture / Unknown 11/10/2023 1:04 PM DIESEL INSPECTOR 11/10/2023 1:05 PM DIESEL INSPECTOR Ronel FERREIRA LAB BLOOD ORDERABLES [facility] [address] [place] [address] * Type and Screen (11/10/2023 1:04 PM DIESEL INSPECTOR) ABORh B POS 11/10/2023 12:58 PM DIESEL INSPECTOR [facility] ABSC Negative 11/10/2023 12:58 PM DIESEL INSPECTOR [facility] Clot Expiration 11/13/2023 23:59 11/10/2023 12:58 PM DIESEL INSPECTOR [facility] Historical Record Check Complete 11/10/2023 12:58 PM DIESEL INSPECTOR [facility] Blood Peripheral blood specimen / Unknown Venipuncture / Unknown 11/10/2023 1:04 PM DIESEL INSPECTOR 11/10/2023 1:05 PM DIESEL INSPECTOR Ronel FERREIRA BLOOD BANK TEST ORDE RABLES [facility] [id number] [place] [address] * BUN (11/10/2023 1:04 PM DIESEL INSPECTOR) Only the most recent of4 resultswithin the time period is included. BUN 23 6 - 23 mg/dL 11/10/2023 1 :34 PM DIESEL INSPECTOR [facility] Blood Peripheral blood specimen / Unknown Venipuncture / Unknown 11/10/2023 1:04 PM DIESEL INSPECTOR 11/10/2023 1:05 PM DIESEL INSPECTOR Ronel FERREIRA LAB BLOOD ORDERABLES [address] [place] [address] * TSH (11/10/2023 1:04 PM DIESEL INSPECTOR) Thyroid Stimulating Hormone 1.45 0.27 - 4.20 mcunit/mL 11/10/2023 1:46 PM DIESEL INSPECTOR [facility] Blood Peripheral blood specimen / Unknown Venipuncture / Unknown 11/10/2023 1:04 PM DIESEL INSPECTOR 11/10/2023 1:05 PM DIESEL INSPECTOR Ronel FERREIRA LAB BLOOD ORDERABLES Performing Organization Address [facility] Co de Phone Number [address] [place] [address] * Free T4 (11/10/2023 1:04 PM DIESEL INSPECTOR) T4 (Thyroxine) Free 1.41 0.93 - 1.70 ng/dL 11/10/2023 1:46 PM DIESEL INSPECTOR [facility] Blood Peripheral blood specimen / Unknown Venipuncture / Unknown 11/10/2023 1:04 PM DIESEL INSPECTOR 11/10/2023 1:05 PM DIESEL INSPECTOR Rnoel FERREIRA LAB BLOOD ORDERABLES Performing Organization Address City/[facility] Co de Phone Number [address] [place] [address] * (ABNORMAL) Hemoglobin A1c (11/10/2023 1:04 PM DIESEL INSPECTOR) Only the most recent of2 resultswithin the time period is included. Hemoglobin A1c 5.7(H) 4.3 - 5.6 % 11/10/2023 2:15 PM DIESEL INSPECTOR [facility] Blood Peripheral blood specimen / Unknown Venipuncture / Unknown 11/10/2023 1:04 PM DIESEL INSPECTOR 11/10/2023 1:05 PM DIESEL INSPECTOR Narrative [facility] - 11/10/2023 2:15 PM DIESEL INSPECTOR HbA1c values >=6.5% are diagnostic of diabetes mellitus. Diagnosis should be confirmed by repeat testing. Therapeutic Action suggested: >8.0% HbA1c; Goal of therapy: <7.0% HbA1c Ronel FERREIRA LAB BLOOD ORDERABLES [facility] Unless otherwise noted, all lab tests performed by: Division of Pathology and Laboratory Medicine [address] [place] [address] * Creatinine (11/10/2023 1:04 PM DIESEL INSPECTOR) Creatinine 0.64 0.51 - 0.95 mg/dL 11/10/2023 1:34 PM DIESEL INSPECTOR [facility] eGFR 102 >=60 mL/min/1.7 3 sq. m 11/10/2023 1:34 PM [facility] Comment: The eGFRcr is calculated with the 2020 CKD-EPI creatinine equation using creatinine, patient's age, and sex for adults 18 years of age and older. Other factors, especially muscle mass, may affect accuracy and need to be considered. According to the Kidney Disease: Improving Global Outcomes (KDIGO) CKD Work Group 2012 Clinical Practice Guideline, chronic kidney disease (CKD) is defined as the abnormalities of kidney structure or function, present for more than 3 months, with implications for health. CKD should be classified by cause, GFR category, and albuminuria category. KDIGO guidelines provide the following GFR categories. Stage / Description / GFR mL/min/1.73 m2: G1* / Normal or high / >= 90 G2* / Mildly decreased / 60-89 G3a / Mildly to moderately decreased / 45-59 G3b / Moderately to severely decreased / 30-44 G4 / Severely decreased / 15-29 G5 / Kidney failure / <15 *In the absence of evidence of kidney damage, neither G1 nor G2 fulfill criteria for CKD. Blood Peripheral blood specimen / Unknown Venipuncture / Unknown 11/10/2023 1:04 PM DIESEL INSPECTOR 11/10/2023 1:05 PM DIESEL INSPECTOR Ronel FERREIRA LAB BLOOD ORDERABLES [facility] [address] [facility] [place] [address] * (ABNORMAL) Electrolyte Panel (11/10/2023 1:04 PM DIESEL INSPECTOR) Only the most recent of4 resultswithin the time period is included. Sodium Level 145 136 - 145 mmol/L 11/10/2023 1:34 PM [facility] Potassium Level 3.6 3.4 - 4.5 mmol/L 11/10/2023 1:34 PM [facility] Chloride 110(H) 98 - 107 mmol/L 11/10/2023 1:34 PM [facility] CO2 26 22 - 29 mmol/L 11/10/2023 1:34 PM [facility] Anion Gap 9 4 - 14 mmol/L 11/10/2023 1:34 PM [facility] Blood Peripheral blood specimen / Unknown Venipuncture / Unknown 11/10/2023 1:04 PM DIESEL INSPECTOR 11/10/2023 1:05 PM DIESEL INSPECTOR Ronel FERREIRA LAB BLOOD ORDERABLES [facility] [address] [facility] [place] [address] * NM DEXA Bone Mineral Density Both Hips and Spine (10/06/2023 2:17 PM DIESEL INSPECTOR) Anatomical Region Laterality Modality Spine Nuclear Medicine 10/06/2023 2:18 PM DIESEL INSPECTOR Impressions 10/06/2023 4:41 PM DIESEL INSPECTOR The findings represent osteopenia (based on measurements of the lumbar spine, total hips, and femoral necks). I personally reviewed these image(s) along with the resident's/fellow's interpretations, certify that if a procedure was performed I was physically present, and agree with the final report. Narrative 10/06/2023 4:41 PM DIESEL INSPECTOR FULL RESULT: Examination: Bone Mineral Density (DXA), 10/06/2023 Clinical History: 58-year-old postmenopausal female with breast cancer. Indication: Assessment of bone mineral density.. Comparison: None. Technique: Bone mineral density was obtained using Hologic dual-energy X-ray absorptiometry. Findings: The findings are provided in the below table(s). Bone Density: Region Exam Date BMD T- Z- g/cm2 Score Score AP Spine (L1-L4) 10/06/2023 0.786 -2.4 -1.1 Femoral Neck (Left) 10/06/2023 0.614 -2.2 -1.0 Total Hip (Left) 10/06/2023 0.805 -1.2 -0.3 Femoral Neck (Right) 10/06/2023 0.593 -2.4 -1.2 Total Hip (Right) 10/06/2023 0.783 -1.3 -0.5 For postmenopausal women and men age 50 and over, the World Health Organization criteria for BMD interpretation classify patients as: Normal (T-score at or above -1.0), Osteopenia (T-score between -1.0 and -2.5), or Osteoporosis (T-score at or below -2.5). Procedure Note Aurelia Vega MD - 10/06/2023 FULL RESULT: Examination: Bone Mineral Density (DXA), 10/06/2023 Clinical History: 58-year-old postmenopausal female with breast cancer. Indication: Assessment of bone mineral density.. Comparison: None. Technique: Bone mineral density was obtained using Hologic [id number] absorptiometry. Findings: The findings are provided in the below table(s). Bone Density: Region Exam Date BMD T- Z- g/cm2 Score Score AP Spine (L1-L4) 10/06/2023 0.786 -2.4 -1.1 Femoral Neck (Left) 10/06/2023 0.614 -2.2 -1.0 Total Hip (Left) 10/06/2023 0.805 -1.2 -0.3 Femoral Neck (Right) 10/06/2023 0.593 -2.4 -1.2 Total Hip (Right) 10/06/2023 0.783 -1.3 -0.5 For postmenopausal women and men age 50 and over, the World Health Organization criteria for BMD interpretation classify patients as: Normal (T-score at or above -1.0), Osteopenia (T-score between -1.0 and -2.5), or Osteoporosis (T-score at or below -2.5). IMPRESSION: The findings represent osteopenia (based on measurements of the lumbarspine, total hips, and femoral necks). I personally reviewed these image(s) along with the resident's/fellow'sinterpretations, certify that if a procedure was performed I wasphysically present, and agree with the final report. Anastasiya Moreno APRN [facility] DXA ORDERABL ES * .Serum Creatinine (06/30/2023 4:00 AM CDT) Only the most recent of3 resultswithin the time period is included. Creatinine 0.89 0.51 - 0.95 mg/dL [facility] Blood 06/30/2023 4:00 AM CDT 06/30/2023 4:16 AM CDT Alicia Jarvis MD LAB BLOOD ORDERABLES Performing Organization Address City/[facility] Co de Phone Number [facility] Unless otherwise noted, all lab tests performed by: Division of Pathology and Laboratory Medicine [address] [place] [phone] * Glomerular Filtration Rate (06/30/2023 4:00 AM CDT) Only the most recent of3 resultswithin the time period is included. eGFR 76 >=60 mL/min/1.7 3 sq. m [facility] Comment: The eGFRcr is calculated with the 2020 CKD-EPI creatinine equation using creatinine, patient's age, and sex for adults 18 years of age and older. Other factors, especially muscle mass, may affect accuracy and need to be considered. According to the Kidney Disease: Improving Global Outcomes (KDIGO) CKD Work Group 2012 Clinical Practice Guideline, chronic kidney disease (CKD) is defined as the abnormalities of kidney structure or function, present for more than 3 months, with implications for health. CKD should be classified by cause, GFR category, and albuminuria category. KDIGO guidelines provide the following GFR categories Stage Description GFR mL/min/1.73 m2 G1* Normal or high >= 90 G2* Mildly decreased 60-89 G3a Mildly to moderately decreased 45-59 G3b Moderately to severely decreased 30-44 G4 Severely decreased 15-29 G5 Kidney failure <15 *In the absence of evidence of kidney damage, neither G1 nor G2 fulfill criteria for CKD. Blood 06/30/2023 4:00 AM CDT 06/30/2023 4:16 AM CDT Alicia Jarvis MD LAB BLOOD ORDERABLES Performing Organization Address City/[facility]/ZIP Co de Phone Number [facility] Unless otherwise noted, all lab tests performed by: Division of Pathology and Laboratory Medicine [address] [place] [phone] * Calcium Ionized, Venous (06/30/2023 4:00 AM CDT) Only the most recent of2 resultswithin the time period is included. [facility] V Ion Ca 1.27 1.15 - 1.29 mmol/L [facility] Blood 06/30/2023 4:00 AM CDT 06/30/2023 4:03 AM CDT Alicia Jarvis MD LAB BLOOD ORDERABLES [facility] Unless otherwise noted, all lab tests performed by: Division of Pathology and Laboratory Medicine [address] [place] [phone] * Lactic Acid, Venous (06/30/2023 4:00 AM CDT) Only the most recent of2 resultswithin the time period is included. [facility] V Lactate 0.6 0.5 - 1.6 mmol/L [facility] Blood 06/30/2023 4:00 AM CDT 06/30/2023 4:03 AM CDT Alicia Jarvis MD LAB BLOOD ORDERABLES Performing Organization Address City/[facility]/ZIP Co de Phone Number [facility] Unless otherwise noted, all lab tests performed by: Division of Pathology and Laboratory Medicine [address] [place] [phone] * (ABNORMAL) Differential (06/30/2023 4:00 AM CDT) Only the most recent of3 resultswithin the time period is included. [facility] Neutrophil % 63.9 43.2 - 72.7 % [facility] Lymphocyte % 18.3 16.8 - 46.2 % [facility] Monocyte % 8.5 5.1 - 12.5 % [facility] Eosinophil % 9.1(H) 0.4 - 6.3 % [facility] Basophil % 0.1(L) 0.2 - 1.4 % [facility] IGRE % 0.1 0.1 - 1.5 % [facility] Comment:IGRE % count include s Metamyelocytes, Myelocytes, and Promyelocytes. Neutrophil Abs 4.51 1.95 - 7.25 K/uL [facility] Lymphocyte Abs 1.29 1.01 - 3.24 K/uL [facility] Monocyte Abs 0.60 0.24 - 0.85 K/uL [facility] Eosinophil Abs 0.64(H) 0.02 - 0.50 K/uL [facility] Basophil Abs 0.01(L) 0.02 - 0.09 K/uL [facility] IG Abs 0.01 0.01 - 0.12 K/uL [facility] Blood 06/30/2023 4:00 AM CDT 06/30/2023 4:03 AM CDT Narrative [facility] - 06/30/2023 4:10 AM CDT On POD1 and POD2 Alicia Jarvis MD LAB BLOOD ORDERABLES [facility] Unless otherwise noted, all lab tests performed by: Division of Pathology and Laboratory Medicine [address] [place] [phone] * (ABNORMAL) Glucose Level (06/30/2023 4:00 AM CDT) Only the most recent of3 resultswithin the time period is included. Glucose Level 128(H) 70 - 99 mg/dL [facility] Comment: Effective 04/06/16, the glucose reference intervals have been updated based on [place] [employer] guidelines (Standards of Medical Care in Diabetes 2016. Diabetes Care 2016; 39: S13-S22). Fasting blood glucose: Normal: 70-99 mg/dL Impaired fasting glucose (increased risk for diabetes or pre-diabetes): 100- 125 mg/dL Diabetes mellitus: >/=126 mg/dL Random blood glucose: Normal: 70-199 mg/dL Note: Random glucose >100 mg/dL is associated with increased risk for diabetes Blood 06/30/2023 4:00 AM CDT 06/30/2023 4:16 AM CDT Alicia Jarvis MD LAB BLOOD ORDERABLES Performing Organization Address [facility] Co de Phone Number [facility] Unless otherwise noted, all lab tests performed by: Division of Pathology and Laboratory Medicine [address] [place] [phone] * Fractionated Bilirubin (06/29/2023 9:47 AM CDT) Only the most recent of2 resultswithin the time period is included. Bili Total 0.5 <=1.2 mg/dL [facility] Comment: Indocyanine Green (ICG) may cause falsely elevated bilirubin results. Total and direct bilirubin must not be measured from samples containing indocyanine green. False elevation of total bilirubin can be seen in patients with IgG concentrations above 28 g/L. Bili Direct <0.2 <=0.3 mg/dL [facility] Comment:Indocyanine Green (I CG) may cause falsely elevated bilirubin results. Total and direct bilirubin must not be measured from samples containing indocyanine green. Bili Indirect See Note 0.0 - 0.9 mg/dL [facility] Comment:Unable to calculate Indirect Bilirubin result due to some parameters are outside reportable range Blood 06/29/2023 9:47 AM CDT 06/29/2023 9:57 AM CDT Ronel FERREIRA LAB BLOOD ORDERABLES Performing Organization Address [facility] Co de Phone Number [facility] Unless otherwise noted, all lab tests performed by: Division of Pathology and Laboratory Medicine [address] [place] [phone] * ALT (06/29/2023 9:47 AM CDT) Only the most recent of2 resultswithin the time period is included. ALT 26 <=33 U/L [facility] Blood 06/29/2023 9:47 AM CDT 06/29/2023 9:57 AM CDT Ronel FERREIRA LAB BLOOD ORDERABLES Performing Organization Address City/[facility] Co de Phone Number [facility] Unless otherwise noted, all lab tests performed by: Division of Pathology and Laboratory Medicine [address] [place] [phone] * (ABNORMAL) Aspartate Aminotransferase (06/29/2023 9:47 AM CDT) Only the most recent of2 resultswithin the time period is included. AST 35(H) <=32 U/L [facility] Blood 06/29/2023 9:47 AM CDT 06/29/2023 9:57 AM CDT Ronel FERREIRA LAB BLOOD ORDERABLES Performing Organization Address [facility] de Phone Number [facility] Unless otherwise noted, all lab tests performed by: Division of Pathology and Laboratory Medicine [address] [place] [phone] * Total Protein (06/29/2023 9:47 AM CDT) Only the most recent of2 resultswithin the time period is included. Total Protein 6.5 6.4 - 8.3 g/dL [facility] Blood 06/29/2023 9:47 AM CDT 06/29/2023 9:57 AM CDT Ronel FERREIRA LAB BLOOD ORDERABLES Performing Organization Address [facility] Co de Phone Number [facility] Unless otherwise noted, all lab tests performed by: Division of Pathology and Laboratory Medicine [address] [place] [phone] * Phosphorus Level (06/29/2023 9:47 AM CDT) Phosphorus 2.5 2.5 - 4.5 mg/dL [facility] Blood 06/29/2023 9:47 AM CDT 06/29/2023 9:57 AM CDT Ronel FERREIRA LAB BLOOD ORDERABLES Performing Organization Address [facility] Co de Phone Number [facility] Unless otherwise noted, all lab tests performed by: Division of Pathology and Laboratory Medicine [address] [place] [phone] * Alkaline Phosphatase (06/29/2023 9:47 AM CDT) Only the most recent of2 resultswithin the time period is included. Alk Phos 57 35 - 104 U/L [facility] Blood 06/29/2023 9:47 AM CDT 06/29/2023 9:57 AM CDT Ronel FERREIRA LAB BLOOD ORDERABLES [facility] Unless otherwise noted, all lab tests performed by: Division of Pathology and Laboratory Medicine [address] [place] [phone] * Magnesium Level (06/29/2023 9:47 AM CDT) Magnesium 2.4 1.6 - 2.6 mg/dL [facility] Blood 06/29/2023 9:47 AM CDT 06/29/2023 9:57 AM CDT Ronel FERREIRA LAB BLOOD ORDERABLES Performing Organization Address City/[facility]/ZIP Co de Phone Number [facility] Unless otherwise noted, all lab tests performed by: Division of Pathology and Laboratory Medicine [address] [place] [phone] * Calcium Level (06/29/2023 9:47 AM CDT) Only the most recent of2 resultswithin the time period is included. Calcium Lvl 9.4 8.4 - 10.2 mg/dL [facility] Blood 06/29/2023 9:47 AM CDT 06/29/2023 9:57 AM CDT Ronel FERREIRA LAB BLOOD ORDERABLES [facility] Unless otherwise noted, all lab tests performed by: Division of Pathology and Laboratory Medicine [address] [place] [phone] * Albumin Level (06/29/2023 9:47 AM CDT) Only the most recent of2 resultswithin the time period is included. Pathologist [facility] Albumin Lvl 4.6 3.5 - 5.2 gm/dL [facility] Blood 06/29/2023 9:47 AM CDT 06/29/2023 9:57 AM CDT Ronel FERREIRA LAB BLOOD ORDERABLES Performing Organization Address [facility] Co de Phone Number [facility] Unless otherwise noted, all lab tests performed by: Division of Pathology and Laboratory Medicine [address] [place] [phone] * (ABNORMAL) POC Glucose Screen (06/28/2023 8:34 PM CDT) [facility] POC Glucose 146(H) 70 - 99 mg/dL [facility] Comment: Capillary blood samples, e.g. obtained by fingerstick, may have inaccurate results in patients with decreased peripheral blood flow. All POC Glucose screen test results, including critical values, must be interpreted and evaluated in the context of the patients clinical findings. It is recommended to confirm any questionable test results by core lab methodology. Method description: All results are measured using Electrochemistry test methodology. The glucose in the sample mixes with the reagents on the test strip. The reaction produces an electric current. The amount of current produced is proportional to the glucose concentration in the blood. PO Sample Type Capillary POC [facility] Performing Lab [facility] POC [facility] Comment:[facility], [address] [place] [id number]; Magnetic Prospecting Supervisor: Katheryn West MD; Waived Point of Care Testing - Corina Brambila MD Blood 06/28/2023 8:3 4 PM CDT 06/28/2023 8:34 PM CDT Ailna Lemons MD POCT ORDERABL ES - DEVICE Performing Organization Address [facility]/ZIP Co de Phone Number POC [facility] Unless otherwise noted, all lab tests performed by: Division of Pathology and Laboratory Medicine [facility] [place] [address] * (ABNORMAL) OR ABG+ (ABG, Na, K, Cl, Glu, Hct, Lactate, Ion Ca) (06/28/2023 6:15 PM CDT) Only the most recent of5 resultswithin the time period is included. OR Sodium, arterial 145 136 - 146 mEq/L [facility] Comment: Methodology: The ABL90 Flex Plus analyzer is an in vitro diagnostic portable, automated analyzer that measures electrolytes in whole blood. This analyzer uses potentiometry to measure K+, Na+, and Cl-. The potential of an electrode chain is measured by a voltmeter, and related to the concentration of the sample. OR Potassium, arterial 3.9 3.4 - 4.5 mEq/L [facility] Comment: Methodology: The ABL90 Flex Plus analyzer is an in vitro diagnostic portable, automated analyzer that measures electrolytes in whole blood. This analyzer uses potentiometry to measure K+, Na+, and Cl-. The potential of an electrode chain is measured by a voltmeter, and related to the concentration of the sample. OR Chloride, arterial 111(H) 98 - 106 mEq/L [facility] Comment: Methodology: The ABL90 Flex Plus analyzer is an in vitro diagnostic portable, automated analyzer that measures electrolytes in whole blood. This analyzer uses potentiometry to measure K+, Na+, and Cl-. The potential of an electrode chain is measured by a voltmeter, and related to the concentration of the sample. OR Glucose, arterial 186(H) 70 - 105 mg/dL [facility] Comment: Methodology: The ABL90 Flex Plus analyzer is an in vitro diagnostic portable, automated analyzer that measures metabolites in whole blood. This analyzer uses amperometry to measure glucose and lactate. The magnitude of an electrical current that flows through an electrode chain is proportional to the concentration of the substance that is oxidized or reduced at an electrode in the chain. OR Hemoglobin, arterial 9.9(L) 12.0 - 16.0 g/dL [facility] Comment: Methodology: The ABL90 Flex Plus analyzer is an in vitro diagnostic portable, automated analyzer that measures hemoglobin in whole blood. This analyzer uses spectrophotometry to measure hemoglobin. Light passes through a cuvette that contains a hemolyzed blood sample. Hematocrit is derived from the total hemoglobin multiplied by the standard value 0.0301. OR Hematocrit, arterial 30(L) 37 - 48 % [facility] OR Lactate, arterial 4.3(C) 0.4 - 0.8 mmol/L [facility] Comment: Methodology: The ABL90 Flex Plus analyzer is an in vitro diagnostic portable, automated analyzer that measures metabolites in whole blood. This analyzer uses amperometry to measure glucose and lactate. The magnitude of an electrical current that flows through an electrode chain is proportional to the concentration of the substance that is oxidized or reduced at an electrode in the chain. OR Ion calcium, arterial 1.25 1.15 - 1.29 mmol/L [facility] Comment: Methodology: The ABL90 Flex Plus analyzer is an in vitro diagnostic portable, automated analyzer that measures electrolytes in whole blood. This analyzer uses potentiometry to measure Ca2+. The potential of an electrode chain is measured by a voltmeter, and related to the concentration of the sample. OR pH Art 7.33(L) 7.35 - 7.45 [facility] OR pCO2 Art 41.6 32.0 - 45.0 mmHg [facility] OR pO2 Art 147(H) 83 - 108 mmHg [facility] OR HCO3 Art 22 21 - 28 mmol/L [facility] Comment: Methodology: The ABL90 Flex Plus analyzer is an in vitro diagnostic portable, automated analyzer that measures electrolytes in whole blood. This analyzer uses potentiometry to measure K+, Na+, Cl-, and HCO3. The potential of an electrode chain is measured by a voltmeter, and related to the concentration of the sample. OR Anion Gap, arterial 13 7 - 16 mmol/L [facility] Comment: Methodology: The ABL90 Flex Plus analyzer is an in vitro diagnostic portable, automated analyzer that measures electrolytes in whole blood. This analyzer uses potentiometry to measure electrolytes. The potential of an electrode chain is measured by a voltmeter, and related to the concentration of the sample. Anion gap is derived as the difference between the concentration of cations and anions. OR Base Excess Art -4(L) -2 - 3 mmol/L [facility] OR O2 Sat Art 98 95 - 99 % [facility] Comment: The ABL90 Flex Plus analyzer is an in vitro diagnostic portable, automated analyzer that measures pH, blood gas, electrolytes, hemoglobin, glucose and lactate in whole blood. This analyzer uses the methodologies noted to perform quantitative measurement of the parameters listed when tested or as noted with indicated analytes. 1) K+, Na+ and Cl-, Anion Gap, Glucose, Lactate, Hemoglobin, and HCO3 -NOTE: Methodology is noted with specific analyte(s) when reported. 2) pH and pCO2 are measured by potentiometry. The potential of an electrode chain is measured by a voltmeter, and related to the concentration of the sample. 3) pO2 is measured by optical pO2. The optical system for pO2 is based on the ability of O2 to reduce the intensity and time constant of the phosphorescence from a phosphorescent dye that is in contact with the sample. 4) sO2 is measured by spectrophotometry. Light passes through a cuvette that contains a hemolyzed blood sample. The absorption spectrum is used to calculate oximetry parameters. FLOW/ FiO2 See Note [facility] Art Draw Site Art Line [facility] Art [place] Test Not Performed [facility] Blood 06/28/2023 6:15 PM CDT 06/28/2023 6:21 PM CDT Darrius Wong MD LAB BLOOD ORDERABLES [facility] Unless otherwise noted, all lab tests performed by: Division of Pathology and Laboratory Medicine [address] [place] [phone] * X-ray Chest 2 Views (06/27/2023 8:44 AM CDT) Anatomical Region Laterality Modality Chest Digital Radiogra phy 06/27/2023 9:00 AM CDT Impressions 06/27/2023 9:01 AM CDT No acute cardiopulmonary disease. ACTIONABLE ITEMS/RECOMMENDATIONS: None. Narrative 06/27/2023 9:01 AM CDT FULL RESULT: Examination: XR CHEST 2 VW on 06/27/2023 8:44 AM. Clinical History: Infiltrating ductal carcinoma of upper inner quadrant of right female breast Indication: Other:, Preop Comparison: 03/06/2023 Technique: Posteroanterior, lateral and dual-energy radiographs of the chest Findings: Support Apparatus: The left chest port terminates in the superior cavoatrial junction. Lungs/Pleura/Mediastinum: The cardiomediastinal silhouette is within normal limits. The lungs and pleural spaces are clear. There has been a right mastectomy with placement of a tissue orthotic and prosthetic technician in the right chest wall. There are clips in the right chest wall. There is a stable sclerotic lesion in the left anterior rib 6, likely a bone island. Procedure Note Mason Valerio MD - 06/27/2023 FULL RESULT: Examination: XR CHEST 2 VW on 06/27/2023 8:44 AM. Clinical History: Infiltrating ductal carcinoma of upper inner quadrant ofright female breast Indication: Other:, Preop Comparison: 03/06/2023 Technique: Posteroanterior, lateral and dual-energy radiographs of thechest Findings: Support Apparatus: The left chest port terminates in the superiorcavoatrial junction. Lungs/Pleura/Mediastinum: The cardiomediastinal silhouette is withinnormal limits. The lungs and pleural spaces are clear. There has been a right mastectomy with placement of a tissue orthotic and prosthetic technician inthe right chest wall. There are clips in the right chest wall. There is astable sclerotic lesion in the left anterior rib 6, likely a boneisland. IMPRESSION: No acute cardiopulmonary disease. ACTIONABLE ITEMS/RECOMMENDATIONS: None. Trina FERREIRA IMG DIAGNOSTIC IMAGI NG ORDERABLES * Clot Expiration Date (06/27/2023 8:07 AM CDT) T & S Expiration 06/30/2023 [facility] Blood 06/27/2023 8:07 AM CDT 06/27/2023 8:54 AM CDT Trina FERREIRA BLOOD BANK TEST KRISTYN ARNOLD [facility] Unless otherwise noted, all lab tests performed by: Division of Pathology and Laboratory Medicine [address] [place] [address] [place] [id number] * TMP Interpretation Antibody Screen Negative (06/27/2023 8:07 AM CDT) TMP Auto Neg ABSC Interp At the present time, patient plasma shows no evidence of RBC alloantibodi es. [facility] Comment: MD Gavin ROD6 Dictated by: MD Gavin ROD Dictated Date/Time: 06.27.2023 14:53 PM CDT Transcribed Date/Time: 06.27.2023 14:53 PM CDT Electronically Signed By: MD Gavin ROD on 06.27.2023 14:53 PM Blood 06/27/2023 8:07 AM CDT 06/27/2023 8:54 AM CDT Trina FERREIRA BLOOD BANK TEST ORDE RABLES Performing Organization Address [facility] Co de Phone Number [facility] Unless otherwise noted, all lab tests performed by: Division of Pathology and Laboratory Medicine [address] [place] [phone] * Partial Thromboplastin Time (06/27/2023 8:07 AM CDT) Pathologist [facility] aPTT 26.9 24.1 - 35.5 second(s) [facility] Blood 06/27/2023 8:07 AM CDT 06/27/2023 8:14 AM CDT Narrative [facility] - 06/27/2023 8:51 AM CDT This lab cannot be scheduled at the following locations due to collection/proccessing restrictions: [facility] and [facility]. Trina FERREIRA LAB BLOOD ORDERABLES Performing Organization Address City/[facility]/ZIP Co de Phone Number [facility] Unless otherwise noted, all lab tests performed by: Division of Pathology and Laboratory Medicine [address] [place] [phone] * ABORh (06/27/2023 8:07 AM CDT) ABORh. B POS [facility] MD HERVE HAN [facility] Blood 06/27/2023 8:07 AM CDT 06/27/2023 8:54 AM CDT Trinamihai FERREIRA BLOOD BANK TEST KRISTYN ARNOLD Performing Organization Address City/[facility]/ZIP Co de Phone Number [facility] Unless otherwise noted, all lab tests performed by: Division of Pathology and Laboratory Medicine [address] [place] [id number] * Prothrombin Time with INR (06/27/2023 8:07 AM CDT) Pathologist [facility] PT 12.4 11.9 - 14.5 second(s) [facility] INR 0.93 0.87 - 1.12 [facility] MD JEFFERY ZARAGOZA [facility] Blood 06/27/2023 8:07 AM CDT 06/27/2023 8:14 AM CDT Narrative [facility] - 06/27/2023 8:51 AM CDT This lab cannot be scheduled at the following locations due to collection/proccessing restrictions: [facility] DI[facility] and [facility]. Trina FERREIRA LAB BLOOD ORDERABLES Performing Organization Address City/[facility]/ZIP Co de Phone Number [facility] Unless otherwise noted, all lab tests performed by: Division of Pathology and Laboratory Medicine [address] [place] [phone] * Antibody Screen (06/27/2023 8:07 AM CDT) Pathologist [facility] ABSC. Negative ABSC [facility] Blood 06/27/2023 8:07 AM CDT 06/27/2023 8:54 AM CDT Trina FERREIRA BLOOD BANK TEST ORDEdwige ARNOLD [facility] Unless otherwise noted, all lab tests performed by: Division of Pathology and Laboratory Medicine [address] [place] [address], [place] [address] * Confirm ABORh (06/27/2023 8:04 AM CDT) ABORh Confirm. B POS [facility] Blood 06/27/2023 8:04 AM CDT 06/27/2023 8:54 AM CDT Trina FERREIRA BLOOD BANK TEST ORDE RABLES Performing Organization Address City/[facility] Co de Phone Number [facility] Unless otherwise noted, all lab tests performed by: Division of Pathology and Laboratory Medicine [address] [place] [id number] * EKG, 12-Lead (Scheduled) (06/27/2023) Trina FERREIRA ECG ORDERABLES Performing Organization Address [facility] de Phone Number RAMY IECG after 05/10/2023 Advance Directives * Full Code (Latest Code Status on File) Date Activated Date Inactivated Comments 06/28/2023 11:24 PM 07/01/2023 6:12 PM * Full Code Date Activated Date Inactivated Comments 04/10/2023 10:02 PM 04/11/2023 4:41 PM Care Teams [facility] Consultant Relationship Specialty Start Date End Date Loree Witt DO [address] [facility] [address] [place] [address] PCP - External Primary Care Provider Family Practice 12/23/22 Lisha Ahn MD [address] [facility] [address] [place] [address] PCP - External Follow Up A Family Practice 12/23/22 Breann Pat MD [address] [place] [address] [id number] [email or web address] PCP - General Breast Medical Oncology 02/28/23 Ligia Cosme MD [address] [place] [phone] [email or web address] Consulting Physician Radiation Oncology 03/30/23 Alina Lemons MD [address] [place] [phone] [email or web address] Physician Plastic and Reconstructive Surgery 04/25/23 Christine Pierson MD [address] [place] [id number] [email or web address] Consulting Physician Psychiatry 04/07/23 Quincy Chen MD [address] [place] [id number] [email or web address] Physician Cardiothoracic Surgery 01/13/23 Skinny Menchaca MD [address] [place] [phone] [email or web address] [facility] Consulting Physician Rheumatology 11/28/23
[2024-05-09] MEDS ORDERED: KETOROLAC 30 MG/ML INJ ONE (14:08)
[2024-05-09] MEDS ORDERED: NA CHLORIDE 0.9% 1,000 ML ONE (14:08)
[2024-05-09 14:46] LABS: Absolute Eosinophils 0.1 K/uL (0-0.5); Absolute Lymphocytes (CBC) 1.6 K/uL (0.7-4.9); Absolute Monocytes 0.4 K/uL (0.1-1.3); Absolute Neutrophil 3.8 K/uL (1.8-8.0); Basophils % 0.8 % (0-1.3); Eosinophils % 1.9 % (0-4.4); Hematocrit 39.4 % (36.0-45.0); Lymphocytes % 26.6 % (15.3-44.8); MCH 29.9 pg (27.0-35.0); MCHC 33.1 g/dL (32.0-36.0); MCV 90.3 fL (80-100); MPV 7.6 fL (7.6-11.3); Monocytes % 6.8 % (3.3-12.3); Neutrophils % 63.9 % (41.7-73.7); Platelets 372 thou/uL (152-406); RBC Red Blood Cell Count 4.36 M/uL (3.86-4.86); Red Cell Distribution Width 14.4 % (12.1-15.2)
[2024-05-09 14:54] LABS: ALT/SGPT 47 U/L (13-56); AST/SGOT 21 U/L (15-37); Albumin 3.4 g/dL (3.4-5.0); Albumin/Globulin Ratio 1.1 (1.1-1.8); Alkaline Phosphatase 87 U/L (45-117); Anion Gap 6.4 mEq/L (5.0-15.0); BUN Blood Urea Nitrogen 21 mg/dL (7-18); Bicarbonate 28 mEq/L (21-32); Bilirubin Total 0.3 mg/dL (0.2-1.0); Globulin 3.1 g/dL (2.3-3.5); Glomerular Filtration Rate 101 ml/min (=/>90); Glucose Level 93 mg/dL (74-106); Lipase 62 U/L (13-75); Magnesium 2.3 mg/dL (1.6-2.4); NT PRO-BNP 14 pg/mL (<125); Potassium 3.4 mEq/L (3.5-5.1); Protein, Total 6.5 g/dL (6.4-8.2); Sodium Level 142 mEq/L (136-145); Troponin High Sensitivity 3.3 pg/mL (<58.9)
[2024-05-09 15:00] LABS: Specific Gravity 1.024 (1.005-1.030); Sqamous Epithelial <5 /HPF (None Seen); Urine Bacteria <20 /HPF (<20); Urine Bilirubin NEGATIVE (Negative); Urine Blood Negative (Negative); Urine Clarity Clear (Clear); Urine Color Yellow (Yellow); Urine Culture Reflex Order NOT NEEDED; Urine Glucose NEGATIVE (Negative); Urine Ketones NEGATIVE (Negative); Urine Micro Reflex YN NO BILL MICROSCOPIC; Urine Mucus Slight /HPF (None Seen); Urine Nitrite NEGATIVE (Negative); Urine Protein NEGATIVE (Negative); Urine RBC <5 /HPF (None Seen); Urine Urobilinogen Normal (Normal); Urine WBC <5 /HPF (<5); Urine pH 5.5 (5.0-7.0)
[2024-05-09 15:03] LABS: Bilirubin Direct < 0.2 mg/dL (0-0.2); Bilirubin Indirect, Calculated 0.1 mg/dL (0.2-0.8)
--- NOTE | 2024-05-09 15:43 | RAD REPORT ---
EXAM DESCRIPTION: CT - Abdomen Pelvis W Contrast - 05/09/2024 3:20 pm CLINICAL HISTORY: Abdominal pain COMPARISON: none. TECHNIQUE: Computed axial tomography of the abdomen pelvis was obtained. 100 cc Isovue-300 was admin istered intravenously. Oral contrast was not requested which limits evaluation of bowel and appendix All CT scans are performed using dose optimization technique as appropriate and may include automated exposure control or mA/KV adjustment according to patient size. FINDINGS: Left lobe of the liver is prominent. Spleen, pancreas, adrenal and kidneys appear unremarkable. There is no evidence of diverticulitis. Hysterectomy. No adnexal mass. Moderate amount stool within the colon. Spondylosis L2-3 IMPRESSION: Moderate amount stool within the colon
--- NOTE | 2024-05-09 15:50 | RAD REPORT ---
EXAM DESCRIPTION: Malia Single View05/09/2024 2:52 pm CLINICAL HISTORY: sob COMPARISON: none FINDINGS: The lungs appear clear of acute infiltrate. The heart is borderline enlarged. IMPRESSION: No acute abnormalities displayed
--- NOTE | 2024-05-09 16:31 | EDPHYS ---
Physician Documentation [facility] Name: Doris Ventura Age: 58 yrs Sex: Female : 1965 Arrival Date: 05/09/2024 Time: 12:29 Bed 6 Private MD: ED Physician Angel Villalobos HPI: 05/09 16:28 This 58 yrs old Female presents to ER via Ambulatory with complaints of rt Shortness Of Breath, Blood Pressure Problem. 16:28 Patient recently completed a course of antibiotics for UTI. Patient reports back pain rt stating that her kidneys hurt. Reports feeling somewhat lightheaded, short of breath earlier, stated that her blood pressure was low but cannot remember the number. States the symptoms have improved. Denies other acute complaints at this time, symptoms are moderate in severity, no other aggravating or elevating factors.. Historical: - Allergies: 12:44 No Known Allergies; tm6 - PMHx: 12:44 breast cancer; Hypertensive disorder; Migraines; Depressive disorder; tm6 - PSHx: 12:44 mastectomy-kiki; Lymph nodes removed on right; tm6 - Immunization history:: Client reports receiving the 2nd dose of the Covid vaccine. - Infectious Disease History:: Denies. - Social history:: Smoking status: Patient denies any tobacco usage or history of. Patient/guardian denies using alcohol. ROS: 16:31 Constitutional: Negative for fever, chills, and weight loss, Cardiovascular: Negative rt for chest pain, palpitations, and edema, Abdomen/GI: Negative for abdominal pain, nausea, vomiting, diarrhea, and constipation, Skin: Negative for injury, rash, and discoloration, 16:31 Respiratory: Positive for shortness of breath, Negative for cough, 16:31 Back: Positive for pain at rest, flank pain, 16:31 Neuro: Positive for near syncope, Negative for loss of consciousness, Exam: 16:31 Constitutional: This is a well developed, well nourished patient who is awake, alert, rt and in no acute distress. Head/Face: Normocephalic, atraumatic. Chest/axilla: Normal chest wall appearance and motion. Nontender with no deformity. No lesions are appreciated. Cardiovascular: Regular rate and rhythm with a normal S1 and S2. No gallops, murmurs, or rubs. Normal PMI, no JVD. No pulse deficits. Respiratory: Lungs have equal breath sounds bilaterally, clear to auscultation and percussion. No rales, rhonchi or wheezes noted. No increased work of breathing, no retractions or nasal flaring. Abdomen/GI: Soft, non-tender, with normal bowel sounds. No distension or tympany. No guarding or rebound. No evidence of tenderness throughout. Skin: Warm, dry with normal turgor. Normal color with no rashes, no lesions, and no evidence of cellulitis. MS/ Extremity: Pulses equal, no cyanosis. Neurovascular intact. Full, normal range of motion. Neuro: Awake and alert, GCS 15, oriented to person, place, time, and situation. Cranial nerves II-XII grossly intact. Motor strength 5/5 in all extremities. Sensory grossly intact. Cerebellar exam normal. Normal gait. 16:31 ECG was reviewed by the Attending Physician. Vital Signs: 12:41 BP 116 / 75; Pulse 90; Resp 18; Temp 96.8(TE); Pulse Ox 100% on R/A; Weight 51.71 kg; tm6 Height 5 ft. 1 in. ; Pain 8/10; 14:30 BP 126 / 75; Pulse 91; Resp 18; Pulse Ox 100% on R/A; db 16:00 BP 117 / 62; Pulse 69; Resp 16; Pulse Ox 100% on R/A; db 12:41 Body Mass Index 21.54 (51.71 kg, 154.94 cm) tm6 12:41 Pain Scale: Adult tm6 MDM: 13:52 Patient medically screened. rt 16:36 Differential diagnosis: UTI, dehydration, pneumonia. Data reviewed: vital signs, nurses rt notes, lab test result(s), EKG, radiologic studies. Consideration of Admission/Observation. I considered the following discharge prescriptions or medication management in the emergency department Medications were administered in the Emergency Department. See MAR. Independent interpretation of the following test(s) in the Emergency Department CT Scan: My interpretation is No ureteral stone seen on my interpretation of CT scan images. Care significantly affected by the following chronic conditions: Hypertension. Counseling: I had a detailed discussion with the patient and/or guardian regarding the historical points, exam findings, and any diagnostic results supporting the discharge/admit diagnosis, lab results, radiology results, the need for outpatient follow up, to return to the emergency department if symptoms worsen or persist or if there are any questions or concerns that arise at home. Response to treatment: the patient's symptoms have markedly improved after treatment. 05/09 14:02 Order name: Basic Metabolic Panel; Complete Time: 15:07 rt 05/09 14:02 Order name: CBC with Diff; Complete Time: 15: rt 05/09 14:02 Order name: LFT's; Complete Time: 15: rt 05/09 14:02 Order name: Magnesium; Complete Time: 15: rt 05/09 14:02 Order name: NT PRO-BNP; Complete Time: 15: rt 05/09 14:02 Order name: Troponin HS; Complete Time: 15: rt 05/09 14:02 Order name: UAM; Complete Time: 15: rt 05/09 14:02 Order name: Lipase; Complete Time: 15: rt 05/09 14:02 Order name: XRAY Chest (1 view) rt 05/09 14:02 Order name: CT Abd/Pelvis - IV Contrast Only rt 05/09 14:02 Order name: EKG; Complete Time: 14: rt 05/09 14:02 Order name: Cardiac monitoring; Complete Time: 14: rt 05/09 14:02 Order name: EKG - Nurse/Tech; Complete Time: 14: rt 05/09 14:02 Order name: IV Saline Lock; Complete Time: 14: rt 05/09 14:02 Order name: Labs collected and sent; Complete Time: 14: rt 05/09 14:02 Order name: O2 Per Protocol; Complete Time: 14: rt 05/09 14:02 Order name: O2 Sat Monitoring; Complete Time: 14: rt EC:31 Rate is 69 beats/min. Rhythm is regular, Normal Sinus Rhythm with No ectopy. QRS [place] rt is Normal. VA interval is normal. QRS interval is normal. QT interval is normal. No Q waves. T waves are Normal. No ST changes noted. Interpreted by me. Administered Medications: : Drug: NS 0.9% IV 1000 ml IV at 1 bolus Per protocol; 1000 mL bolus Route: IV; Rate: 1 db bolus; Site: right antecubital; 15:30 Follow up: Response: No adverse reaction; IV Status: Completed infusion; IV Intake: db 1000ml 14:25 Drug: Ketorolac IVP 15 mg IVP once Route: IVP; Site: right antecubital; db 15:00 Follow up: Response: No adverse reaction db Disposition Summary: 05/09/24 16:30 Discharge Ordered Notes: Location: Home rt Problem: new rt Symptoms: are resolved rt Condition: Stable rt Diagnosis - Dyspnea rt - Syncope Near rt Followup: rt - With: Private Physician - When: 2 - 3 days - Reason: Discharge Instructions: - Discharge Summary Sheet rt - Near-Syncope rt - Shortness of Breath, Adult rt Forms: - Medication Reconciliation Form rt - Antibiotic Education rt - Prescription Opioid Use rt - Patient Portal Instructions rt - Leadership Thank You Letter rt Signatures: Dispatcher [employer] Desiree Hanley RN RN db Angel Villalobos MD MD rt Rahel Kemp RN RN tm6
--- NOTE | 2024-05-09 16:31 | ER ---
Nurse's Notes [facility] Name: Doris Ventura Age: 58 yrs Sex: Female : 1965 Arrival Date: 05/09/2024 Time: 12:29 Bed 6 Private MD: Diagnosis: Dyspnea;Syncope Near Presentation: 05/09 12:41 Chief complaint: Patient states: feeling dizzy and short of breath at home, took bp, tm6 machine said it was low. My kidneys hurt because I have a UTI, I took all the antibiotics but I am still in pain and still pee all the time. I have a pain on my head that comes and goes, has been going on for 3 hours. Coronavirus screen: Vaccine status: Patient reports receiving the 2nd dose of the covid vaccine. Ebola Screen: Patient negative for fever greater than or equal to 101.5 degrees Fahrenheit, and additional compatible Ebola Virus Disease symptoms Patient denies exposure to infectious person. Patient denies travel to an Ebola-affected area in the 21 days before illness onset. No symptoms or risks identified at this time. Initial Sepsis Screen: Does the patient meet any 2 criteria? No. Patient's initial sepsis screen is negative. Does the patient have a suspected source of infection? No. Patient's initial sepsis screen is negative. Risk Assessment: Do you want to hurt yourself or someone else? Patient reports no desire to harm self or others. Onset of symptoms was May 09, 2024. 12:41 Method Of Arrival: Ambulatory tm6 12:41 Acuity: UMESH 3 tm6 Triage Assessment: 12:44 General: Appears in no apparent distress. Behavior is calm, cooperative. Pain: tm6 Complains of pain in scalp, left low back and right low back Pain does not radiate. Pain currently is 8 out of 10 on a pain scale. Quality of pain is described as aching, Pain began two weeks ago. EENT: No signs and/or symptoms were reported regarding the EENT system. Neuro: Level of Consciousness is awake, alert, obeys commands, Oriented to person, place, time, situation. Neuro: Reports headache since 3 hours ago. Cardiovascular: Reports shortness of breath, SOB at home, but not now Patient's skin is warm and dry. Respiratory: Reports shortness of breath at home Airway is patent Respiratory effort is even, unlabored, Respiratory pattern is regular, symmetrical, Onset: The symptoms/episode began/occurred this morning, the patient reports symptoms have resolved. GI: No signs and/or symptoms were reported involving the gastrointestinal system. Abdomen is flat, non-distended. : Reports pain flank(s), urinary frequency. Derm: No signs and/or symptoms reported regarding the dermatologic system. Musculoskeletal: No signs and/or symptoms reported regarding the musculoskeletal system. Historical: - Allergies: 12:44 No Known Allergies; tm6 - PMHx: 12:44 breast cancer; Hypertensive disorder; Migraines; Depressive disorder; tm6 - PSHx: 12:44 mastectomy-kiki; Lymph nodes removed on right; tm6 - Immunization history:: Client reports receiving the 2nd dose of the Covid vaccine. - Infectious Disease History:: Denies. - Social history:: Smoking status: Patient denies any tobacco usage or history of. Patient/guardian denies using alcohol. Screenin:32 [facility] ED Fall Risk Assessment (Adult) History of falling in the last 3 months, db including since admission No falls in past 3 months (0 pts) Confusion or Disorientation No (0 pts) Intoxicated or Sedated No (0 pts) Impaired Gait No (0 pts) Mobility Assist Device Used No (0 pt) Altered Elimination No (0 pt) Score/Fall Risk Level 3 or more points = High Risk Oriented to surroundings, Maintained a safe environment. Abuse screen: Denies threats or abuse. Denies injuries from another. Nutritional screening: No deficits noted. Tuberculosis screening: No symptoms or risk factors identified. Assessment: 14:31 Reassessment: Patient appears in no apparent distress at this time. Patient and/or db family updated on plan of care and expected duration. Pain level reassessed. Patient is alert, oriented x 3, equal unlabored respirations, skin warm/dry/pink. General: Appears in no apparent distress. comfortable, Behavior is calm, cooperative. Neuro: Level of Consciousness is awake, alert, obeys commands, Oriented to person, place, time, situation. Cardiovascular: Rhythm is sinus rhythm. Respiratory: Airway is patent Respiratory effort is even, unlabored, Respiratory pattern is regular, symmetrical, Breath sounds are clear. 15:30 Reassessment: Patient appears in no apparent distress at this time. Patient and/or db family updated on plan of care and expected duration. Pain level reassessed. Patient is alert, oriented x 3, equal unlabored respirations, skin warm/dry/pink. Patient states feeling better. Patient states symptoms have improved. 16:43 Reassessment: Patient appears in no apparent distress at this time. Patient and/or db family updated on plan of care and expected duration. Pain level reassessed. Patient is alert, oriented x 3, equal unlabored respirations, skin warm/dry/pink. General: Appears in no apparent distress. comfortable, Behavior is calm, cooperative. Neuro: Level of Consciousness is awake, alert, obeys commands, Oriented to person, place, time, situation. Vital Signs: 12:41 BP 116 / 75; Pulse 90; Resp 18; Temp 96.8(TE); Pulse Ox 100% on R/A; Weight 51.71 kg; tm6 Height 5 ft. 1 in. ; Pain 8/10; 14:30 BP 126 / 75; Pulse 91; Resp 18; Pulse Ox 100% on R/A; db 16:00 BP 117 / 62; Pulse 69; Resp 16; Pulse Ox 100% on R/A; db 12:41 Body Mass Index 21.54 (51.71 kg, 154.94 cm) tm6 12:41 Pain Scale: Adult tm6 ED Course: 12:31 Patient arrived in ED. mr 12:36 Angel Villalobos MD is Attending Physician. rt 12:44 Triage completed. tm6 12:44 Arm band placed on right wrist. tm6 14:00 Desiree Serrato, RN is Primary Nurse. db 14:25 Initial lab(s) drawn, by me, sent to lab. EKG done, by ED staff, reviewed by Angel Villalobos MD. Inserted saline lock: 20 gauge in right antecubital area, using aseptic technique. Blood collected. Flushed with 10 mL NS. 14:53 XRAY Chest (1 view) In Process Unspecified. EDMS 15:22 CT Abd/Pelvis - IV Contrast Only In Process Unspecified. EDMS 16:41 Patient has correct armband on for positive identification. Bed in low position. Call db light in reach. Side rails up X 1. Provided Education on: DISCHARGE. Client placed on continuous cardiac and pulse oximetry monitoring. NIBP monitoring applied. monitor car operator on. Pulse ox on. Warm blanket given. 16:41 No provider procedures requiring assistance completed. IV discontinued, intact, db bleeding controlled, No redness/swelling at site. Administered Medications: 14:25 Drug: NS 0.9% IV 1000 ml IV at 1 bolus Per protocol; 1000 mL bolus Route: IV; Rate: 1 db bolus; Site: right antecubital; 15:30 Follow up: Response: No adverse reaction; IV Status: Completed infusion; IV Intake: db 1000ml 14:25 Drug: Ketorolac IVP 15 mg IVP once Route: IVP; Site: right antecubital; db 15:00 Follow up: Response: No adverse reaction db Medication: 16:41 VIS not applicable for this client. db Intake: 15:30 IV: 1000ml; Total: 1000ml. db Outcome: 16:30 Discharge ordered by . rt 16:41 Discharged to home ambulatory, db 16:41 Condition: stable 16:41 Discharge instructions given to patient, Instructed on discharge instructions, follow up and referral plans. 16:45 Patient left the ED. db Signatures: Dispatcher [employer] EDPR Laurel Lombardo, Reg Reg Desiree Torres, RN RN db Angel Villalobos MD MD rt Rahel Kemp, PAOLA RN tm6
[2024-05-09 17:26] VITALS: TEMP 96.8; O2SAT 100
[2024-05-09 17:30] VITALS: BP 117/62
--- NOTE | 2024-05-10 14:39 | EKG ---
Test Date: 2024-05-09 Test Time: 14:16:35 [employer] Specialist: [employer] MEASUREMENT RESULTS: Intervals: Rate: 69 NC: 142 QRSD: 74 QT: 392 QTc: 420 [place]: P: 73 NC: 142 QRS: 67 T: 63 INTERPRETIVE STATEMENTS: Normal sinus rhythm Normal ECG Compared to ECG 03/26/2024 19:52:51 T-wave abnormality no longer present Electronically Signed On 05-10-24 14:38:31 CDT by Pino Bear
== END 2024-05-09 16:45 | disposition home or self-care (01) ==
LOC: ER 12:29
DX: R06.00 Dyspnea, unspecified (principal); R55 Syncope and collapse
CPT/HCPCS: 36415; 71045; 74177; 80048; 80076; 81001; 83690; 83735; 83880; 84484; 85025; 93005; 96361; 96374; 99285; J7030; Q9967